=== PATIENT | female | born 1985 | race Caucasian/White ===

== ENCOUNTER 2016-10-25 03:15 | Emergency (ER) | payer OTHER ==
[~2016-10-25] VITALS: Ht 162.6 cm; Wt 133.6 kg
[~2016-10-25 03:15] MED LIST: ALBU8.5H2 INHALATION; ASPI81TA3 PO; BECL8.7A5 IH; BUDE10.2; EPIN0.3P2 IJ; GUAI118L13 PO; LORA-302 PO; implanon IMPLANT
--- NOTE | 2016-10-25 03:22 | ED.REPORT ---
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 Reports progressively worsening pain. Pt also reports a syncopal episode today. She was in the shower , became dizzy, and woke up on the floor. Denies nausea, vomiting, confusion, headache, neck pain, back pain, abdominal pain, constipation, diarrhea, or dysuria. Nursing Notes Stated Complaint: SYNCOPE Nursing Notes Reviewed: Yes Allergies: Coded Allergies: avocado (Verified Allergy, Unknown, 06/25/16) citalopram (Verified Allergy, Unknown, 06/25/16) hydroxyzine (Verified Allergy, Unknown, oversedation, 06/25/16) phenazopyridine (Verified Allergy, Unknown, 06/25/16) Uncoded Allergies: POLYMYXIN SULFATE (Allergy, Unknown, 09/28/15) Scheduled Aspirin Chew (Aspirin Chew) 81 Mg Chew 81 MG PO DAILY Beclomethasone Dipropionate (Qvar) 8.7 Gm Aer.w.adap 8.7 GM IH BID Scheduled PRN Albuterol HFA (Proair HFA) 8.5 Gm Hfa.aer.ad 2 PUFFS INHALATION Q4H PRN PRN For Shortness of Breath Albuterol HFA (Proair HFA) 8.5 Gm Hfa.aer.ad 2-4 PUFFS INHALATION Q4H PRN PRN For Shortness of Breath Budesonide/Formoterol 80-4.5 mcg Inh (Symbicort 80-4.5 mcg Inh) 120 Puff Inhaler 2 PUFFS PRN For Shortness of Breath Epinephrine (Epipen 2-Prem) 0.3 Mg/0.3 Ml Auto.injct 0.3 MG IJ ONCE PRN PRN For Anaphyllaxis Guaifenesin/Codeine Phosphate (Cheratussin AC Syrup) 118 Ml Liquid 10 ML PO QID PRN PRN For Cough Lorazepam (Ativan) 0.5 Mg Tablet 0.5 MG PO TID PRN PRN For Anxiety Miscellaneous Medications ([implanon]) 68 MG IMPLANT General Time Seen by Provider: 03:21 Chief Complaint Lost consciousness Hx Obtained From: Patient Arrived By: Ambulance Onset Occurred: Just prior to arrival Symptom Duration: Since onset Severity: Current: No pain currently Pertinent Negative: Pt denies other symptoms Recent Healthcare: No recent doctor visit, No recent hospitalization Similar Sx Previous: Yes Past Medical History Past Medical History Notes: Seen in ED 05/09 dx w/Varicella (started on Acyclovir) PCP: Dr. 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 Physical Exam Initial Vital Signs Vital Signs (First) Date Time Temp Pulse Resp B/P Pulse Ox O2 Delivery O2 Flow Rate FiO2 10/25/16 03:25 38.5 123 23 96/63 97 Room Air - Initial VS: Reviewed, Vital signs abnormal Head / Eyes: Atraumatic, Normocephalic, PERRL ENT: Mucous membranes moist, Conjunctiva normal, No scleral icterus Neck: Supple, Non-tender, Full range of motion Upper Extremities: Vascular intact, Neuro intact, No swelling, No tenderness Skin: Warm, Dry, No cyanosis Psychiatric: Mood/affect normal, Behavior normal, Normal thought content General/Constitutional: Awake, Alert Appearance / Presentation: Positive: Obese Respiratory / Chest: Breath sounds NL, Breath sounds = bilat, No respiratory distress, No rales, No rhonchi, No wheezing Cardiovascular: Heart rate NL, Regular rhythm, Heart sounds NL, No murmurs, Cap refill not delayed, Peripheral circulation NL Lower Extremity / Pelvis / MS: Inspection NL, No swelling, Non-tender, No erythema, No deformity, Neurologic intact, Vascular intact, No edema Neurologic: Oriented X3, Speech NL, No motor deficits, No sensory deficits, CN II - XII intact, Reflexes equal bilat, Cerebellar NL Interpretation & Diagnostics CT PULMONARY ANGIOGRAM CONCLUSION: No evidence of pulmonary embolism or dissection. RADIOLOGIST: Reed Daniels MD Lab Results Interpretation Result Diagram: 10/25/16 0333 10/25/16 0333 Test 10/25/16 03:33 White Blood Count 9.1th/mm3 (3.8-10.1) Red Blood Count 5.25mil/mm3 (3.90-5.20) Hemoglobin 14.5g/dL (12.0-15.6) Hematocrit 44.9% (35.0-46.0) Mean Corpuscular Volume 85.5fL (81-100) Mean Corpuscular Hemoglobin 27.6pg (27.0-35.0) Mean Corpuscular Hemoglobin Concent 32.3% (32.0-37.0) Red Cell Distribution Width 13.9% (12.3-15.4) Platelet Count 244bil/L (150-400) Neutrophils (%) (Auto) 78.3% (40-74) Lymphocytes (%) (Auto) 13.1% (14-46) Monocytes (%) (Auto) 8.3% (4-12) Eosinophils (%) (Auto) 0.1% (0-5) Basophils (%) (Auto) 0.1% (0-3) D-Dimer 1.3mg/L (<0.50) Sodium Level 140mEq/L (134-144) Potassium Level 3.9mEq/L (3.5-5.2) Chloride Level 103mEq/L (97-108) Carbon Dioxide Level 23mmol/L (18-29) Blood Urea Nitrogen 8mg/dL (6-20) Creatinine 1.02mg/dL (0.57-1.00) Estimat Glomerular Filtration Rate 91mL/min (>59) Glucose Level 141mg/dL (60-99) Calcium Level 9.1mg/dL (8.5-10.1) Magnesium Level 1.8mg/dL (1.6-2.6) Total Bilirubin 0.4mg/dL (0.0-1.2) Aspartate Amino Transf (AST/SGOT) 26U/L (0-50) Alanine Aminotransferase (ALT/SGPT) 30U/L (0-32) Alkaline Phosphatase 85U/L (25-150) Troponin T 0.010ug/L (0.0-0.011) Pro-B-Type Natriuretic Peptide 97.29pg/mL (0-130) Total Protein 7.4g/dL (6.4-8.4) Albumin 3.6g/dL (3.4-5.0) ECG Interpretation ECG Interpretation: Sinus tachycardia at a rate of 111 Time: 04:13 Interpreted by: ED physician X-Ray Chest Interpretation Interpretation / Wet Read by: Wet read ED physician NL X-Ray Chest Findings: No acute disease Re-Eval/Medical Decision Med Decision/Clinical Course It appears her symptoms are due to a viral bronchitis. No evidence on labs or CT of serious pulmonary problems. No evidence of pulmonary edema. Antibiotics would not be helpful. [id number] cough and cold medication would help relieve her symptoms. Counseled Regarding: Diagnosis, Lab results, Need for follow-up Discharge & Departure Impression: Primary Impression: Acute viral bronchitis Disposition: Home Discharge Condition All VS Reviewed: Yes Condition: Stable Patient Instructions: Acute Bronchitis (ED) Additional Instructions: It appears her symptoms are due to a viral bronchitis. No evidence on labs or CT of serious pulmonary problems. No evidence of pulmonary edema. Antibiotics would not be helpful. [id number]-[id number] cough and cold medication would help relieve her symptoms. Referrals: Tremayne Nicholas (PCP) Scribe Attestation Portions of this note were transcribed by Lazarus Meadows. I, Dr. Byrne personally performed the history, physical exam and medical decision-making; I reviewed and confirmed the accuracy of the information in the transcribed note. Signed by: damien Hernandez. 10/24/2016, 05:00. Jone Byrne MD Oct 25, 2016 03:22 LAZARUS MEADOWS Oct 25, 2016 03:38
[2016-10-25 03:25] VITALS: BP 96/63; PULSE 123; RESP 23; O2SAT 97
[2016-10-25] MEDS ORDERED: 0.9% Sodium Chloride 1,000 ML IV ONE (03:31)
[2016-10-25 03:44] LABS: BASOPHILS % (AUTO) 0.1 % (0-3); EOSINOPHILS % (AUTO) 0.1 % (0-5); MONOCYTES % (AUTO) 8.3 % (4-12); Mean Corpuscular Hemoglobin 27.6 pg (27.0-35.0); Mean Corpuscular Volume 85.5 fL (81-100); NEUTROPHILS % (AUTO) 78.3 % (40-74); Platelet Count 244 bil/L (150-400)
[2016-10-25 04:06] LABS: TROPONIN T 0.01 ug/L (0.0-0.011)
[2016-10-25 04:17] LABS: Magnesium 1.8 mg/dL (1.6-2.6)
[2016-10-25 05:54] VITALS: BP 119/75; PULSE 92; RESP 15; O2SAT 98
[2016-10-25 06:56] VITALS: BP 118/78; PULSE 88; RESP 16; O2SAT 98
--- NOTE | 2016-10-25 08:55 | DRSVH ---
PROCEDURE: X-RAY CHEST ONE VIEW, PORTABLE ([id number]) INDICATIONS: SHORT OF BREATH TECHNIQUE: One view of the chest was acquired. COMPARISON: [facility], CR, XR CHEST 1VW (PORTABLE), 09/11/2016, 17:15. FINDINGS: Surgical changes and devices: None. Lungs and pleura: No pleural effusions or pneumothorax. Lungs are clear. Mediastinum: Mediastinal contours appear normal. Heart size is normal. Bones and chest wall: No suspicious bony lesions. Overlying soft tissues appear unremarkable. IMPRESSION: No acute cardiopulmonary disease. Dictated by: Alejo Dugan M.D. on 10/25/2016 at 8:53 Approved by: Alejo Dugan M.D. on 10/25/2016 at 8:54
--- NOTE | 2016-10-25 11:08 | DRSVH ---
PROCEDURE: CT ANGIO CHEST PULMONARY EMBOLISM ([id number]) INDICATIONS: chest pain, dyspnea, elev dimer TECHNIQUE: After the administration of intravenous contrast, 2 mm thick sections acquired from the pulmonary api aretha to the posterior costophrenic angles. 3-dimensional maximum intensity projection (MIP) coronal a nd sagittal reformats were then acquired through the thorax. For radiation dose reduction, the follo wing was used: automated exposure control, adjustment of mA and/or kV according to patient size. COMPARISON: , CT, CT ANGIO CHEST PE, 09/11/2016, 19:01. FINDINGS: Image quality: Excellent. Pulmonary arteries: Pulmonary arteries are normal in size, and demonstrate no intraluminal filling d efects to suggest central pulmonary embolism. Lungs and pleura: Lungs are clear. No pleural effusions or pneumothorax. Central and peripheral ai rways are patent. Mediastinum: Heart size is normal, without pericardial effusion. No change in anterior mediastinal s oft tissue density, consistent with residual thymus. No mediastinal or hilar adenopathy. Thoracic ao rta is normal in caliber and enhancement. Esophagus is normal in caliber, without hiatal hernia. Bones and chest wall: No suspicious bony lesions. Ribs and thoracic spine appear intact throughout. Thyroid gland is within normal limits. No axillary or supraclavicular adenopathy. Abdomen: Visualized upper abdominal solid organs appear normal in the early arterial phase of enhanc ement. IMPRESSION: 1. No acute process. No pulmonary embolus. 2. Concordant with preliminary interpretation. Dictated by: Anayeli Holliday M.D. on 10/25/2016 at 11:04 Approved by: Anayeli Holliday M.D. on 10/25/2016 at 11:07
== END 2016-10-25 06:57 | disposition home or self-care (01) ==
LOC: EDBD 03:15 → SED 03:15
DX: J20.8 Acute bronchitis due to other specified organisms (principal); R55 Syncope and collapse; F41.9 Anxiety disorder, unspecified; J45.909 Unspecified asthma, uncomplicated; E66.9 Obesity, unspecified; Z91.018 Allergy to other foods; Z87.09 Personal history of other diseases of the respiratory system; Z87.442 Personal history of urinary calculi; Z68.43 Body mass index [BMI] 50.0-59.9, adult; Z98.890 Other specified postprocedural states; Z79.82 Long term (current) use of aspirin; Z88.8 Allergy status to other drugs, medicaments and biological substances; Z88.6 Allergy status to analgesic agent; Z88.1 Allergy status to other antibiotic agents
CPT/HCPCS: 36415; 71010; 71275; 80053; 83735; 83880; 84484; 85025; 85379; 93005; 96360; 99285; J7030; Q9967

== ENCOUNTER 2016-11-27 17:57 | Emergency (ER) | payer OTHER ==
[~2016-11-27] VITALS: Ht 162.6 cm; Wt 56.8 kg
[2016-11-27 18:05] VITALS: BP 129/79; PULSE 78; RESP 16; O2SAT 99
[2016-11-27 18:53] LABS: Mean Corpuscular Hemoglobin 28.1 pg (27.0-35.0); Mean Corpuscular Volume 84 fL (81-100); Platelet Count 324 bil/L (150-400)
[2016-11-27 18:54] LABS: BASOPHILS % (AUTO) 0 % (0-3); EOSINOPHILS % (AUTO) 2 % (0-5); MONOCYTES % (AUTO) 5 % (4-12); NEUTROPHILS % (AUTO) 69 % (40-74)
[2016-11-27 19:14] LABS: TROPONIN T < 0.010 ug/L (0.0-0.011)
--- NOTE | 2016-11-27 19:38 | ED.REPORT ---
HPI-Chest Pain Under 40 Date of Service Nov 27, 2016 ED Provider: Darien Cai MD 31 year old obese female with a history of cardiomyopathy and anxiety presents to the ER with acute on chronic persistent chest pressure onset this morning at 08:30. Symptoms are typically transient, but today they have persisted throughout the day. Occasionally the pain radiates into her back, without arm or neck involvement. She also reports headache. Patient denies SOB, nausea, vomiting, and any other symptoms at this time. Several weeks ago she was seen here in the ER for similar and worked up for PE. She is currently scheduled for a Holter monitor per her recent visit with Dr. Wells, Cardiology, five days ago. Nursing Notes Stated Complaint: CHEST PAIN Chief Complaint: Chest Pain Nursing Notes Reviewed: Yes Allergies: Coded Allergies: avocado (Verified Allergy, Unknown, 11/27/16) citalopram (Verified Allergy, Unknown, 11/27/16) hydroxyzine (Verified Allergy, Unknown, oversedation, 11/27/16) phenazopyridine (Verified Allergy, Unknown, 11/27/16) Uncoded Allergies: POLYMYXIN SULFATE (Allergy, Unknown, 09/28/15) Scheduled Aspirin Chew (Aspirin Chew) 81 Mg Chew 81 MG PO DAILY Beclomethasone Dipropionate (Qvar) 8.7 Gm Aer.w.adap 8.7 GM IH BID Scheduled PRN Albuterol HFA (Proair HFA) 8.5 Gm Hfa.aer.ad 2 PUFFS INHALATION Q4H PRN PRN For Shortness of Breath Albuterol HFA (Proair HFA) 8.5 Gm Hfa.aer.ad 2-4 PUFFS INHALATION Q4H PRN PRN For Shortness of Breath Budesonide/Formoterol 80-4.5 mcg Inh (Symbicort 80-4.5 mcg Inh) 120 Puff Inhaler 2 PUFFS PRN For Shortness of Breath Epinephrine (Epipen 2-Prem) 0.3 Mg/0.3 Ml Auto.injct 0.3 MG IJ ONCE PRN PRN For Anaphyllaxis Guaifenesin/Codeine Phosphate (Cheratussin AC Syrup) 118 Ml Liquid 10 ML PO QID PRN PRN For Cough Lorazepam (Ativan) 0.5 Mg Tablet 0.5 MG PO TID PRN PRN For Anxiety Miscellaneous Medications ([implanon]) 68 MG IMPLANT General Time Seen by MD: 19:31 Chief Complaint Chest pressure Hx Obtained From: Patient Arrived By: Walk-in Sudden in Onset?: No Onset Occurred: 9 - 12 hours ago (08:30 today) Symptom Duration: Since onset Location: : Substernal Quality: Pressure Radiation: : Back Severity: Current: Moderate Severity: Maximum: Moderate Associated with: Denies: Cough, productive, Fever, Nausea, Shortness of breath , Vomiting Context Related History: Reports: Anxiety disorder Recent Healthcare: Recent doctor visit Similar Sx Previous: Yes Past Medical History Past Medical History Notes: Seen in ED 05/09 dx w/Varicella (started on Acyclovir) PCP: Dr. 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 Physical Exam Initial Vital Signs Vital Signs (First) Date Time Temp Pulse Resp B/P Pulse Ox O2 Delivery O2 Flow Rate FiO2 11/27/16 18:05 36.2 78 16 129/79 99 Room Air Initial VS: Reviewed Head / Eyes: Atraumatic, Normocephalic Neck: Supple, Non-tender, Full range of motion Abdomen / GI: Soft, Non-tender, No guarding, No rebound, No distention Extremities: Vascular intact, Neuro intact, No swelling, No tenderness Skin: Warm, Dry, No cyanosis Neurologic: Alert, Oriented, Nonfocal General/Constitutional: Awake, Alert, Well developed Behavior: Positive: Tearful Appearance / Presentation: Positive: Obese Respiratory / Chest: Breath sounds NL, Breath sounds = bilat, No respiratory distress, No rales, No rhonchi Wheezing / Retractions: Positive: Wheezing mild (bilateral) Reproducible chest pain. Cardiovascular: Heart rate NL, Regular rhythm, Heart sounds NL, No murmurs Interpretation & Diagnostics Lab Results Interpretation Result Diagram: 11/27/16 1809 11/27/16 1843 Test 11/27/16 18:09 11/27/16 18:43 White Blood Count 10.7th/mm3 (3.8-10.1) Red Blood Count 4.95mil/mm3 (3.90-5.20) Hemoglobin 13.9g/dL (12.0-15.6) Hematocrit 41.4% (35.0-46.0) Mean Corpuscular Volume 84fL (81-100) Mean Corpuscular Hemoglobin 28.1pg (27.0-35.0) Mean Corpuscular Hemoglobin Concent 33.6% (32.0-37.0) Red Cell Distribution Width 13.6% (12.3-15.4) Platelet Count 324bil/L (150-400) Neutrophils (%) (Auto) 69% (40-74) Lymphocytes (%) (Auto) 24% (14-46) Monocytes (%) (Auto) 5% (4-12) Eosinophils (%) (Auto) 2% (0-5) Basophils (%) (Auto) 0% (0-3) Sodium Level 139mEq/L (134-144) Potassium Level 4.0mEq/L (3.5-5.2) Chloride Level 103mEq/L (97-108) Carbon Dioxide Level 22mmol/L (18-29) Blood Urea Nitrogen 13mg/dL (6-20) Creatinine 0.77mg/dL (0.57-1.00) Estimat Glomerular Filtration Rate 126mL/min (>59) Glucose Level 95mg/dL (60-99) Calcium Level 9.0mg/dL (8.5-10.1) Magnesium Level 2.0mg/dL (1.6-2.6) Total Bilirubin 0.3mg/dL (0.0-1.2) Aspartate Amino Transf (AST/SGOT) 23U/L (0-50) Alanine Aminotransferase (ALT/SGPT) 28U/L (0-32) Alkaline Phosphatase 86U/L (25-150) Troponin T < 0.010ug/L (0.0-0.011) Total Protein 7.2g/dL (6.4-8.4) Albumin 3.9g/dL (3.4-5.0) Hold Philippe Top Tube Received (Received) ECG Interpretation Time: 20:07 Interpreted by: ED physician Normal ECG Interpretation: Normal rate (73), Normal sinus rhythm X-Ray Chest Interpretation Chest Xray Interpretation: IMPRESSION: No acute disease Dictated by: Yousif Raya M.D. on 11/27/2016 at 21:30 Approved by: Yousif Raya M.D. on 11/27/2016 at 21:30 View: Portable, 1 view Interpretation / Wet Read by: Interpret - Radiologist Re-Eval/Medical Decision Med Decision/Clinical Course 31-year-old female history of cardiomyopathy secondary to NSTEMI in August due to accidental epinephrine overdose after anaphylactic reaction. Presenting complaining of chest pain daily 1 month. Worsening today. It is reproducible on exam. Patient was sent over from urgent care and user support analyst supervisor requested troponins. Troponins were negative. No EKG changes. Resolved with Toradol likely musculoskeletal. Discussed with user support analyst supervisor who thought okay to discharge home with follow up with his user support analyst supervisor and recommended scheduling urgent stress test. Return precautions given. Source of Hx: Old records Re-Evaluation/Progress : Time of Eval: 21:38 Re-Evaluation/Progress Note: Discussed lab and radiology results and plan to discharge. Patient is amenable to the plan. Return precautions given. All other questions addressed. Consultation : Referral / Consult Name: Marciano Lux MD Consulted With: Cardiology Call Returned at: 20:14 Fluorescent Lamp Replacer: Agrees with eval, Agrees with plan Note: Discharge, call to arrange stress test in the morning. Counseled Regarding: Diagnosis, Lab results, Need for follow-up, When/why to return to ED Discharge & Departure Primary Impression: Chest pain Disposition: Home Discharge Condition All VS Reviewed: Yes Condition: Stable Patient Instructions: Chest Pain (ED) Additional Instructions: Your workup today was reassuring. I do not believe that there is any dangerous cause for your symptoms at this time. Call Dr. Wells, Cardiology, in the morning to arrange a stress test. Mention that Dr. Lux requested this. Return to the ER if you develop worsening pain, radiation of pain into your arms /neck/jaw, shortness of breath, diaphoresis, nausea, fever, chills, or any other concerning symptoms. Referrals: Lakshmi Layton (PCP) Sienna Wells MD Attestation Portions of this note were transcribed by Dusty Sherman. I, Dr. Cai, personally performed the history, physical exam and medical decision-making; I reviewed and confirmed the accuracy of the information in the transcribed note. Signed by: Jarrett Osorio, 11/27/2016 - 21:45 copies to: Lakshmi Layton; Sienna Wells MD, Ben M MD Nov 27, 2016 19:38 DUSTY SHERMAN Nov 27, 2016 19:52
[2016-11-27] MEDS ORDERED: Ketorolac 30 mg/mL 2 mL Inj IM ONE (20:20)
--- NOTE | 2016-11-27 21:32 | DRSVH ---
PROCEDURE: X-RAY CHEST ONE VIEW, PORTABLE ([id number]) INDICATIONS: pain TECHNIQUE: One view of the chest was acquired. COMPARISON: None. FINDINGS: Surgical changes and devices: None. Lungs and pleura: No pleural effusions or pneumothorax. Lungs are clear. Mediastinum: Mediastinal contours appear normal. Heart size is normal. Bones and chest wall: No suspicious bony lesions. Overlying soft tissues appear unremarkable. IMPRESSION: No acute disease Dictated by: Yousif Raya M.D. on 11/27/2016 at 21:30 Approved by: Yousif Raya M.D. on 11/27/2016 at 21:30
[2016-11-27 21:55] VITALS: BP 99/63; PULSE 76; RESP 16; O2SAT 99
== END 2016-11-27 21:54 | disposition home or self-care (01) ==
LOC: SED 17:57
DX: R07.89 Other chest pain (principal); R51 Headache; I42.9 Cardiomyopathy, unspecified; J45.909 Unspecified asthma, uncomplicated; Z79.82 Long term (current) use of aspirin; Z88.8 Allergy status to other drugs, medicaments and biological substances; Z91.018 Allergy to other foods
CPT/HCPCS: 36415; 71010; 80053; 83735; 84484; 85025; 93005; 96372; 99285; G0463; J1885

== ENCOUNTER 2017-01-13 23:58 | Observation (INO) | payer OTHER ==
[~2017-01-13] VITALS: Ht 160 cm; Wt 132.9 kg
[2017-01-14] VITALS (11 sets, daily range): BP systolic 97–113; BP diastolic 43–66; PULSE 77–108; RESP 17–28; O2SAT 97–99
[2017-01-14] MEDS ORDERED: 0.9% Sodium Chloride 1,000 ML IV ONE (00:21)
[2017-01-14] MEDS ORDERED: MeTOProlol 1 mg/mL 5 mL Inj IVPUSH PRN (00:25)
[2017-01-14] MEDS ORDERED: Ondansetron 2 mg/mL 2 mL Inj ONE (00:50)
[2017-01-14 00:55] LABS: BASOPHILS % (AUTO) 0.1 % (0-3); MONOCYTES % (AUTO) 6.7 % (4-12); Mean Corpuscular Hemoglobin 28.4 pg (27.0-35.0); Mean Corpuscular Volume 79.9 fL (81-100); NEUTROPHILS % (AUTO) 64.2 % (40-74); Platelet Count 359 bil/L (150-400)
[2017-01-14 01:22] LABS: D-Dimer < 0.50 mg/L FEU (<0.50)
[2017-01-14] MEDS ORDERED: Alum-Mag Hydrox-Simeth 30 mL Suspension PO ONE (01:35)
[2017-01-14] MEDS ORDERED: Pantoprazole 4 mg/mL 10 mL Inj IVPUSH ONE (01:35)
[2017-01-14 01:41] LABS: TROPONIN T 0.01 ug/L (0.0-0.011)
--- NOTE | 2017-01-14 03:08 | ED.REPORT ---
HPI-Chest Pain Under 40 Date of Service Jan 14, 2017 ED Provider: Eric Contreras MD Patient is a 31 year old female with a history of CAD, CHF, depression, anxiety , and previous cardiac reaction to epinephrine who presents to the ED complaining of chest pain onset 0900 this morning. Patient states that she took her new nitrate heart medication that was prescribed two days ago by Dr. Wells, professional advisor, at 0830 this morning with toast and felt fine until 1100. She then began feeling nauseated, diaphoretic, palpitations and feeling as though she was "floating". She also complains of feeling a pounding in her head when she leaned down. Rest did not help to resolve her symptoms. The symptoms worsened throughout the day until she called EMS in the evening. Nursing Notes Stated Complaint: CHEST DISCOMFORT AND ANXIETY Chief Complaint: Chest Pain Nursing Notes Reviewed: Yes Allergies: Coded Allergies: avocado (Verified Allergy, Unknown, 11/27/16) citalopram (Verified Allergy, Unknown, 11/27/16) hydroxyzine (Verified Allergy, Unknown, oversedation, 11/27/16) phenazopyridine (Verified Allergy, Unknown, 11/27/16) Uncoded Allergies: POLYMYXIN SULFATE (Allergy, Unknown, 09/28/15) Scheduled Aspirin Chew (Aspirin Chew) 81 Mg Chew 81 MG PO DAILY Beclomethasone Dipropionate (Qvar) 8.7 Gm Aer.w.adap 8.7 GM IH BID Scheduled PRN Albuterol HFA (Proair HFA) 8.5 Gm Hfa.aer.ad 2 PUFFS INHALATION Q4H PRN PRN For Shortness of Breath Albuterol HFA (Proair HFA) 8.5 Gm Hfa.aer.ad 2-4 PUFFS INHALATION Q4H PRN PRN For Shortness of Breath Budesonide/Formoterol 80-4.5 mcg Inh (Symbicort 80-4.5 mcg Inh) 120 Puff Inhaler 2 PUFFS PRN For Shortness of Breath Epinephrine (Epipen 2-Prem) 0.3 Mg/0.3 Ml Auto.injct 0.3 MG IJ ONCE PRN PRN For Anaphyllaxis Guaifenesin/Codeine Phosphate (Cheratussin AC Syrup) 118 Ml Liquid 10 ML PO QID PRN PRN For Cough Lorazepam (Ativan) 0.5 Mg Tablet 0.5 MG PO TID PRN PRN For Anxiety Miscellaneous Medications ([implanon]) 68 MG IMPLANT General Time Seen by MD: 00:20 Chief Complaint Chest pain Hx Obtained From: Patient, EMS Arrived By: Ambulance Sudden in Onset?: Yes Onset Occurred: 13 - 16 hours ago Recent Healthcare: No recent hospitalization, Recent doctor visit Similar Sx Previous: Yes Past Medical History Past Medical History Notes: Seen in ED 05/09 dx w/Varicella (started on Acyclovir) PCP: Dr. 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 Physical Exam Initial Vital Signs Vital Signs (First) Date Time Temp Pulse Resp B/P Pulse Ox O2 Delivery O2 Flow Rate FiO2 01/14/17 00:07 36.7 108 28 113/43 98 Room Air Initial VS: Reviewed General/Constitutional: Awake, Alert Appearance / Presentation: Positive: Obese Respiratory / Chest: Atraumatic, Breath sounds NL, Breath sounds = bilat, No respiratory distress Cardiovascular: Heart rate NL, Regular rhythm, Heart sounds NL Neck: Atraumatic, Supple, Full range of motion Abdomen: Atraumatic, Soft, Non-tender Back: Atraumatic, Full range of motion Lower Extremity / Pelvis / MS: Atraumatic, Full range of motion Skin: Atraumatic, Color NL, No rash, Warm, Dry Neurologic: Oriented X3, Speech NL, No motor deficits, No sensory deficits Psychiatric: Affect NL, Mood NL Head / Eyes: Atraumatic, Normocephalic, PERRL, EOMI ENT: Atraumatic, Airway patent, Mucous membranes moist Upper Extremity / MS: Atraumatic, Full range of motion Interpretation & Diagnostics Lab Results Interpretation Result Diagram: 01/14/17 0030 01/14/17 0030 Test 01/14/17 00:30 01/14/17 01:26 White Blood Count 11.1th/mm3 (3.8-10.1) Red Blood Count 4.97mil/mm3 (3.90-5.20) Hemoglobin 14.1g/dL (12.0-15.6) Hematocrit 39.7% (35.0-46.0) Mean Corpuscular Volume 79.9fL (81-100) Mean Corpuscular Hemoglobin 28.4pg (27.0-35.0) Mean Corpuscular Hemoglobin Concent 35.5% (32.0-37.0) Red Cell Distribution Width 13.3% (12.3-15.4) Platelet Count 359bil/L (150-400) Neutrophils (%) (Auto) 64.2% (40-74) Lymphocytes (%) (Auto) 27.8% (14-46) Monocytes (%) (Auto) 6.7% (4-12) Eosinophils (%) (Auto) 1.0% (0-5) Basophils (%) (Auto) 0.1% (0-3) Prothrombin Time 10.7sec (8.1-12.5) Prothromb Time International Ratio 1.00ratio Activated Partial Thromboplast Time 28.2sec (22.8-33.0) D-Dimer < 0.50mg/L FEU (<0.50) Sodium Level 137mEq/L (134-144) Potassium Level 3.8mEq/L (3.5-5.2) Chloride Level 101mEq/L (97-108) Carbon Dioxide Level 18mmol/L (18-29) Blood Urea Nitrogen 10mg/dL (6-20) Creatinine 0.70mg/dL (0.57-1.00) Estimat Glomerular Filtration Rate 141mL/min (>59) Glucose Level 120mg/dL (60-99) Calcium Level 9.1mg/dL (8.5-10.1) Magnesium Level 2.0mg/dL (1.6-2.6) Total Bilirubin 0.2mg/dL (0.0-1.2) Aspartate Amino Transf (AST/SGOT) 25U/L (0-50) Alanine Aminotransferase (ALT/SGPT) 31U/L (0-32) Alkaline Phosphatase 86U/L (25-150) Total Protein 7.3g/dL (6.4-8.4) Albumin 3.9g/dL (3.4-5.0) Hold Philippe Top Tube Received (Received) Hold Urine Received (Received) ECG Interpretation ECG Interpretation: Atrial premature complex Time: 00:11 Interpreted by: ED physician Normal ECG Interpretation: Normal rate (95), Normal sinus rhythm Time: 03:05 Interpreted by: ED physician Normal ECG Interpretation: Normal rate (88), Normal sinus rhythm X-Ray Chest Interpretation Chest Xray Interpretation: poor inspiration no acute findings View: Portable, 1 view Interpretation / Wet Read by: Wet read ED physician Re-Eval/Medical Decision Med Decision/Clinical Course 31-year-old prior episode of non-STEMI strain ischemia associated with use of IV epinephrine and an allergy response. She presents now with chest pain lightheadedness and throbbing headache in the setting of new nitroglycerin prescription, possibly isosorbide mononitrate. She has been only moderately consolable and remains in some pain, but her EKG is negative 2, as are two sets of enzymes two hours apart. She was admitted now observation status for completion of rule out protocol and possible echocardiogram. Transported in stable condition. Source of Hx: Old records Re-Evaluation/Progress : Time of Eval: 05:04 Patient Status: Condition improved Re-Evaluation/Progress Note: Rechecked patient. Discussed EKG results and plan for admission. The patient understands and agrees to the plan. All questions were addressed. Consultation : Referral / Consult Name: Joey Machado MD Consulted With: Hospitalist Call Returned at: 05:17 Public Policy Mediator: Agrees with eval, Agrees with plan, Accepts admit Counseled Regarding: Diagnosis, Lab results, Need for admission Discharge & Departure Primary Impression: Chest pain Chest pain type: unspecified Qualified Code: R07.9 - Chest pain, unspecified Additional Impression: Anxiety Disposition: ADMITTED TO HOSPITAL Discharge Condition All VS Reviewed: Yes Condition: Stable Referrals: Lakshmi Layton (PCP) Scribe Attestation Portions of this note were transcribed by Ashley Byrne. Dr. Ben Sierra personally performed the history, physical exam and medical decision -making; I reviewed and confirmed the accuracy of the information in the transcribed note. Signed by: Jarrett Moore, 01/14/17 and 0612. copies to: Lakshmi Layton Christopher W MD Jan 14, 2017 03:08 Payton Stafford Jan 14, 2017 03:09 JOE BYRNE Jan 14, 2017 04:15 Discharge & Departure Primary Impression: Chest pain Chest pain type: unspecified Qualified Code: R07.9 - Chest pain, unspecified Additional Impression: Anxiety Disposition: ADMITTED TO HOSPITAL Discharge Condition All VS Reviewed: Yes Condition: Stable Referrals: Lakshmi Layton (PCP) Jarrett Attestation Portions of this note were transcribed by Ashley Byrne. I, Dr. Contreras personally performed the history, physical exam and medical decision -making; I reviewed and confirmed the accuracy of the information in the transcribed note. Signed by: Jarrett Moore, 01/14/17 and 0559. copies to: Lakshmi Layton Christopher W MD Jan 14, 2017 03:08 Payton Stafford Jan 14, 2017 03:09 JOE BYRNE Jan 14, 2017 04:15
[2017-01-14] MEDS ORDERED: 0.9% Sodium Chloride 1,000 ML IV SCH ×2 (05:24→12:44)
[2017-01-14] MEDS ORDERED: Atropine 1 mg/10 mL (Code) Syringe IVPUSH PRN (05:25)
[2017-01-14] MEDS ORDERED: Senna-Docusate 8.6-50 mg Tablet PO PRN (05:25)
[2017-01-14] MEDS ORDERED: Alum-Mag Hydrox-Simeth 30 mL Suspension PO PRN ×2 (05:25→12:45)
[2017-01-14] MEDS ORDERED: Ondansetron 2 mg/mL 2 mL Inj IVPUSH PRN ×2 (05:25→12:45)
[2017-01-14] MEDS ORDERED: Polyethylene Glycol (PEG) 17 Gm Powder PO PRN ×2 (05:25→12:45)
--- NOTE | 2017-01-14 06:30 | NUR ---
Admit Pt arrived on unit #[id number] at apprx 0625 from ED via stretcher with all personal belongings. VSS. Oriented to hospital policy and call light. Bed locked, low position. Allergy sticker placed on armband. Call light within reach.
[2017-01-14 07:11] LABS: Creatine Kinase 69 U/L (21-215)
[2017-01-14] MEDS ORDERED: ACET10DR4 BOTH_EARS (07:43)
[2017-01-14] MEDS ORDERED: ISOS30TA4 PO (07:43)
[2017-01-14] MEDS ORDERED: METR45GE11 TOPICAL (07:43)
[2017-01-14] MEDS ORDERED: Sodium Chloride LOK Flush 10 mL Syringe IVFLUSH SCH (08:30)
[2017-01-14] MEDS ORDERED: Heparin 5,000 Unit/mL Inj SUBQ SCH ×2 (08:30→16:30)
--- NOTE | 2017-01-14 10:06 | NUR ---
Pt concern/medication Pt sts "feels really off, like I'm floating" Pt believes is related to medication that was started 01/13. Reports upper chest is sensitive to touch, sts "morphine does not work well for pain". Has used Toradol in past with better pain control. MD made aware. No new orders given at this time. Will continue to monitor.
--- NOTE | 2017-01-14 10:42 | DRSVH ---
PROCEDURE: X-RAY CHEST ONE VIEW, PORTABLE ([id number]) INDICATIONS: Chest pain. TECHNIQUE: One view of the chest was acquired. COMPARISON: [facility], CR, XR CHEST 1VW (PORTABLE), 11/27/2016, 20:22. FINDINGS: Surgical changes and devices: None. Lungs and pleura: Shallow inspiration. No pleural effusions or pneumothorax. Lungs are clear. Mediastinum: Mediastinal contours appear normal. Heart size is normal. Bones and chest wall: No suspicious bony lesions. Overlying soft tissues appear unremarkable. IMPRESSION: No acute cardiopulmonary disease. Dictated by: Alejo Dugan M.D. on 01/14/2017 at 10:40 Approved by: Alejo Dugan M.D. on 01/14/2017 at 10:40
[2017-01-14 12:44] LABS: Creatine Kinase 68 U/L (21-215)
[2017-01-14] MEDS ORDERED: Hydrocortisone 10 mg Tablet PO ONE (12:45)
[2017-01-14] MEDS ORDERED: Ketorolac 15 mg/mL Inj IVPUSH PRN (12:45)
--- NOTE | 2017-01-14 15:42 | NUR ---
Ambulation Pt up and ambulating in room. Able to lift self from bed with no assistance from this RN. Gait is steady and strong, no complains of increased chest pain, SOB or dizziness. made aware.
[2017-01-14] MEDS ORDERED: IBUP400T22 PO (15:43)
--- NOTE | 2017-01-14 15:51 | PCM.DIMED ---
Discharge Instructions Date of Service Jan 14, 2017 Dates of Hospitalization Jan 14, 2017 at 05:38 Discharge Diagnosis Discharge Diagnosis 1. Acute chest pain most likely acute Costochondritis. Present on admission. Ongoing. - ruled out for myocardial infarction with negative serial cardiac enzymes. 2. Acute nausea, diaphoresis and palpitations, present prior to presentation. Likely side effect of new medication, Isosorbide. Resolved. Diet Heart Healthy Activity No restrictions Call your provider Fever or Chills, Shortness of breath, Chest pain, Vomitting Patient Instructions Seek immediate medical attention if any new or worsening signs or symptoms occur. Follow-up plan 1. Followup with primary care provider this coming week 2. Followup with your seasonal warehouse associate (Dr. Wells) as previously planned or sooner if needed. Follow-up Provider: Lakshmi Layton Provider: Sienna Wells MD, Masoud Jan 14, 2017 15:51
--- NOTE | 2017-01-14 16:21 | NUR ---
Discharge Pt discharged at this time, all belongings gathered and returned to pt. VSS, no complains of increased chest pain, SOB, N/V or dizziness. IV D/Cd intact, tele monitor removed, Discharge packet printed and reviewed with pt. PT declined offer of Addendum: 01/14/17 at 1631 by SULTANA NAM RN wheelchair. Pt escorted from [facility] by this RN to the elevator, to meet ride home at hospital entrance.
--- NOTE | 2017-01-14 16:57 | PCM.HPMED ---
Subjective Date of Service Jan 14, 2017 Primary Provider: Admitting Physician: Joey Machado MD Primary Care Physician: Lakshmi Layton Attending Physician: Joey Machado MD Chief Complaint: Chest pain, nausea, diaphoresis and palpitations History of Present Illness: 31 year old obese female with a history of suspected stress induced cardiomyopathy in the past and anxiety presents with complaint of feeling nauseated, diaphoretic, palpitations and feeling as though she was "floating" after she took Isosorbide earlier in the morning for the first time (as prescribed by her manager msw, Dr Wells, 2 days earlier). Those symptoms have now significantly subsided but she still complains of acute on chronic persistent chest pain. Her chest pain episodes are typically transient, but today they have persisted throughout the day. She has been seen in the ER and by her manager msw several times since August 2016 when her symptom first began following a significant allergic reaction to Avocado with suspected stress induced cardiomyopathy at that time. Her workup in recent weeks has been notable for a repeat echocardiogram on 09/13 which showed: "Compared to the previous study of 09/11/16, the EF has normalized and the previously described wall motion abnormalities are no longer present", CTA of chest that ruled out PE on 10/25/16, a "normal stress echocardiogram" on 12/27/16, as well as an unremarkable Holter monitor recently. Her workup in the ED today was notable for 2 sets of Troponin that was negative and patient was admitted to complete the cycling of her cardiac enzymes. In addition to the noted above patient reports a migraine headache earlier but not now. She thinks she may have lost some weight since August 2016. She otherwise denies any significant shortness of breath. Does report some lightheadedness with ambulation earlier today but denies any right now. 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 Allergies Coded Allergies: avocado (Verified Allergy, Unknown, 11/27/16) citalopram (Verified Allergy, Unknown, 11/27/16) hydroxyzine (Verified Allergy, Unknown, oversedation, 11/27/16) phenazopyridine (Verified Allergy, Unknown, 11/27/16) Uncoded Allergies: POLYMYXIN SULFATE (Allergy, Unknown, 09/28/15) Home Medications Albuterol HFA 8.5 Gm Hfa.Aer.Ad (Proair HFA) 2 Puffs INHALATION Q4H PRN Epinephrine 0.3 Mg/0.3 Ml Auto.Injct (Epipen 2-Prem) 0.3 Mg IJ ONCE PRN Aspirin Chew 81 Mg Chew 81 Mg PO DAILY Lorazepam 0.5 Mg Tablet (Ativan) 0.5 Mg PO TID PRN Beclomethasone Dipropionate 8.7 Gm Aer.W.Adap (Qvar) 8.7 Gm IH BID Budesonide/Formoterol 80-4.5 mcg Inh 120 Puff Inhaler (Symbicort 80-4.5 mcg Inh) 2 Puffs PRN Metronidazole 45 Gm Gel..Gram. (Metronidazole Gel) 1 Applic TOPICAL DAILY [implanon] 68 Mg IMPLANT Exam Vital Signs & I/O Vital Sign- Last 8 Hours Date Time Temp Pulse Resp B/P Pulse Ox O2 Delivery O2 Flow Rate FiO2 01/14/17 14:49 36.7 84 18 99/62 97 Room Air 01/14/17 10:56 36.4 77 20 99/65 97 Room Air 01/14/17 10:51 85 Intake and Output- Last 8 Hour 01/14/17 Cumulative From/Thru 07:00 01/14/17 00:07 - 01/14/17 06:26 Intake Total 1000 ml 1000 ml Balance 1000 ml 1000 ml Intake IV Total 1000 ml 1000 ml # Voids 1 1 Lab & Micro Results Laboratory Tests Test 01/14/17 00:30 01/14/17 01:26 01/14/17 03:05 01/14/17 06:00 White Blood Count 11.1th/mm3 (3.8-10.1) Red Blood Count 4.97mil/mm3 (3.90-5.20) Hemoglobin 14.1g/dL (12.0-15.6) Hematocrit 39.7% (35.0-46.0) Mean Corpuscular Volume 79.9fL (81-100) Mean Corpuscular Hemoglobin 28.4pg (27.0-35.0) Mean Corpuscular Hemoglobin Concent 35.5% (32.0-37.0) Red Cell Distribution Width 13.3% (12.3-15.4) Platelet Count 359bil/L (150-400) Neutrophils (%) (Auto) 64.2% (40-74) Lymphocytes (%) (Auto) 27.8% (14-46) Monocytes (%) (Auto) 6.7% (4-12) Eosinophils (%) (Auto) 1.0% (0-5) Basophils (%) (Auto) 0.1% (0-3) Prothrombin Time 10.7sec (8.1-12.5) Prothromb Time International Ratio 1.00ratio Activated Partial Thromboplast Time 28.2sec (22.8-33.0) D-Dimer < 0.50mg/L FEU (<0.50) Sodium Level 137mEq/L (134-144) Potassium Level 3.8mEq/L (3.5-5.2) Chloride Level 101mEq/L (97-108) Carbon Dioxide Level 18mmol/L (18-29) Blood Urea Nitrogen 10mg/dL (6-20) Creatinine 0.70mg/dL (0.57-1.00) Estimat Glomerular Filtration Rate 141mL/min (>59) Glucose Level 120mg/dL (60-99) Calcium Level 9.1mg/dL (8.5-10.1) Magnesium Level 2.0mg/dL (1.6-2.6) Total Bilirubin 0.2mg/dL (0.0-1.2) Aspartate Amino Transf (AST/SGOT) 25U/L (0-50) Alanine Aminotransferase (ALT/SGPT) 31U/L (0-32) Alkaline Phosphatase 86U/L (25-150) Troponin T 0.010ug/L (0.0-0.011) 0.010ug/L (0.0-0.011) 0.010ug/L (0.0-0.011) Total Protein 7.3g/dL (6.4-8.4) Albumin 3.9g/dL (3.4-5.0) Hold Philippe Top Tube Received (Received) Hold Urine Received (Received) Total Creatine Kinase 69U/L (21-215) Creatine Kinase MB 1.0ng/mL (0.0-5.3) Creatine Kinase MB % % (0.0-5.0) Test 01/14/17 11:25 Total Creatine Kinase 68U/L (21-215) Creatine Kinase MB 1.0ng/mL (0.0-5.3) Creatine Kinase MB % % (0.0-5.0) Troponin T 0.010ug/L (0.0-0.011) Result Diagram: 01/14/17 0030 01/14/17 0030 Review of Systems: Constitutional: Negative, except as otherwise mentioned in the history above. Ophthalmologic: Negative, except as otherwise mentioned in the history above. Cardiovascular: Negative, except as otherwise mentioned in the history above. Respiratory: Negative, except as otherwise mentioned in the history above. Gastrointestinal: Negative, except as otherwise mentioned in the history above. Genitourinary: Negative, except as otherwise mentioned in the history above. Musculoskeletal: Negative, except as otherwise mentioned in the history above. Neurological: Negative, except as otherwise mentioned in the history above. Psychiatric: Negative, except as otherwise mentioned in the history above. Hematologic/Lymphatic: Negative, except as otherwise mentioned in the history above. Allergic/Immunologic: Negative, except as otherwise mentioned in the history above. PMH 1. acute stress cardiomyopathy ,resolved -stress CMP due to stress from anaphylaxis vs stress from IV epinephrine injection . 2. Anaphylaxis, acute. Present on admission. Improved. 3. Anxiety, chronic. 4. Asthma, chronic. 5. Obesity Surgical History Lisfranc surgery on Left foot Family History Mother at 47 from stroke Grandfather also had a stroke Social History Hx Alcohol Use: Yes ("occasionally") Hx Substance Use: No Hx Tobacco Use: No Smoking Status: Never Smoker Exam Vital Signs Vital Sign - Last Date Time Temp Pulse Resp B/P Pulse Ox O2 Delivery O2 Flow Rate FiO2 01/14/17 14:49 36.7 84 18 99/62 97 Room Air Intake and Output 01/13/17 01/13/17 01/14/17 Cumulative From/Thru 15:00 23:00 07:00 01/14/17 00:07 - 01/14/17 06:26 Intake Total 1000 ml 1000 ml Balance 1000 ml 1000 ml Intake IV Total 1000 ml 1000 ml # Voids 1 1 General: Alert, Oriented X3, Cooperative, No Acute Distress Head: Normal Eyes: PERRLA, EOMI, Scleral Anicteric Nose: Mucous Membr Moist/[place] Mouth: Mucous Membr Moist/[place] Neck: Supple Chest & Lungs: Clear to auscultation & percussion, Other (anterior chest wall is tender to palpation diffusely with chest pain described by the patient clearly reproducible with palpation.) Cardiovascular: Regular Rate/Rhythm Pulses: NL carotid, radial, femoral, DP, PT Abdomen: Non-tender, Non-distended, Normoactive bowel tones, Soft Extremities: No cyanosis/clubbing/edma bilat Skin: Other (eczema covering most of the face and forehead. tattoo noted on anterior left upper chest wall.) Neurological: Grossly Neurologically Intact, Cranial Nerves 2-12 Intact, Normal Speech Lymphatic: Other Lymph Nodes (no signficant lymphadenopathy) Lab and Diagnostics Result Diagram: 01/14/172901/14/1729 X-Rays, CTs and MRIs Date of Service: 01/14/1720 PROCEDURE: X-RAY CHEST ONE VIEW, PORTABLE ([id number]) IMPRESSION: No acute cardiopulmonary disease. Dictated by: Alejo Dugan M.D. on 01/14/2017 at 10:40 Approved by: Alejo Dugan M.D. on 01/14/2017 at 10:40 12-lead ECG NSR at about [address] elevation/depression noted. Assessment & Plan 31 year old obese female with a history of suspected stress induced cardiomyopathy in the past and anxiety presents with complaint of feeling nauseated, diaphoretic, palpitations and feeling as though she was "floating" after she took Isosorbide earlier in the morning for the first time (as prescribed by her manager msw, Dr Wells, 2 days earlier). Those symptoms have now significantly subsided but she still complains of acute on chronic persistent chest pain. Her chest pain episodes are typically transient, but today they have persisted throughout the day. # Acute on chronic chest pain. present on admission. ongoing - This pain is clearly reproducible with palpation and typical of costochondritis - In fact patient makes a note that her chest pain seems to improve with Toradol but not Morphine - She has already ruled out for acute IN with serial negative Trop at the time of my interviewing the patient - Given her extensive negative cardiac workup including a very recent stress test I will not pursue any further cardiac workup at this time and will defer further followup of possible cardiac issues to her manager msw (Dr. Wells) in the outpatient setting (patient reports she has another appointment with Dr. Wells soon) - Will treat patient with Ibuprofen for presumed costochondritis - Recommend further close followup with PCP - Patient also provided with patient education and information from "[facility]" regarding additional non-medication treatment of costochondritis # Acute nausea, diaphoresis and palpitations, prior to admission. Resolved - Likely side-effect of Isosorbide that was started for the first time before the onset of symptoms - Patient instructed to stop taking this medication and instead followup with her manager msw (Dr. Wells) for further recommendation # History of asthma. stable # History of anxiety. presume stable - Continue with home medication Disposition: patient wishes to be discharged home at this time and given no plan for further workup for now will discharge her home later today. Resuscitation Status: CPR: Attempt Resuscitation (discussed and verified with the patient) Time spent 60 min Christopher Corea Jan 14, 2017 16:56
--- NOTE | 2017-01-14 17:40 | PCM.DC.MED ---
Discharge Summary Date of Service Jan 14, 2017 Dates of Hospitalization Date of Hospital Admission Jan 14, 2017 at 05:38 Date of Discharge: Jan 14, 2017 Providers: Admitting Physician: Joey Machado MD Primary Care Physician: Lakshmi Layton Attending Physician: Joey Machado MD Diagnosis at Time of Discharge Diagnosis at Time of Discharge 1. Acute chest pain most likely acute Costochondritis. Present on admission. Ongoing. - ruled out for myocardial infarction with negative serial cardiac enzymes. 2. Acute nausea, diaphoresis and palpitations, present prior to presentation. Likely side effect of new medication, Isosorbide. Resolved. Procedures XRay, CTs & MRIs Date of Service: 01/14/17 0021 PROCEDURE: X-RAY CHEST ONE VIEW, PORTABLE ([id number]) IMPRESSION: No acute cardiopulmonary disease. Dictated by: Alejo Dugan M.D. on 01/14/2017 at 10:40 Approved by: Alejo Dugan M.D. on 01/14/2017 at 10:40 ECG 12 Lead NSR at about [address] elevation/depression noted. Brief History 31 year old obese female with a history of suspected stress induced cardiomyopathy in the past and anxiety presents with complaint of feeling nauseated, diaphoretic, palpitations and feeling as though she was "floating" after she took Isosorbide earlier in the morning for the first time (as prescribed by her locksmith helper, Dr Wells, 2 days earlier). Those symptoms have now significantly subsided but she still complains of acute on chronic persistent chest pain. Her chest pain episodes are typically transient, but today they have persisted throughout the day. She has been seen in the ER and by her locksmith helper several times since August 2016 when her symptom first began following a significant allergic reaction to Avocado with suspected stress induced cardiomyopathy at that time. Her workup in recent weeks has been notable for a repeat echocardiogram on 09/13 which showed: "Compared to the previous study of 09/11/16, the EF has normalized and the previously described wall motion abnormalities are no longer present", CTA of chest that ruled out PE on 10/25/16, a "normal stress echocardiogram" on 12/27/16, as well as an unremarkable Holter monitor recently. Her workup in the ED today was notable for 2 sets of Troponin that was negative and patient was admitted to complete the cycling of her cardiac enzymes. In addition to the noted above patient reports a migraine headache earlier but not now. She thinks she may have lost some weight since August 2016. She otherwise denies any significant shortness of breath. Does report some lightheadedness with ambulation earlier today but denies any right now. 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 Hospital Course # Acute on chronic chest pain. present on admission. ongoing - This pain is clearly reproducible with palpation and typical of costochondritis - In fact patient makes a note that her chest pain seems to improve with Toradol but not Morphine - She has already ruled out for acute CO with serial negative Trop at the time of my interviewing the patient - Given her extensive negative cardiac workup including a very recent stress test I will not pursue any further cardiac workup at this time and will defer further followup of possible cardiac issues to her locksmith helper (Dr. Wells) in the outpatient setting (patient reports she has another appointment with Dr. Wells soon) - Will treat patient with Ibuprofen for presumed costochondritis - Recommend further close followup with PCP - Patient also provided with patient education and information from "[facility]" regarding additional non-medication treatment of costochondritis # Acute nausea, diaphoresis and palpitations, prior to admission. Resolved - Likely side-effect of Isosorbide that was started for the first time before the onset of symptoms - Patient instructed to stop taking this medication and instead followup with her locksmith helper (Dr. Wells) for further recommendation # History of asthma. stable # History of anxiety. presume stable - Continue with home medication Exam Vital Signs (Last) Date Time Temp Pulse Resp B/P Pulse Ox O2 Delivery O2 Flow Rate FiO2 01/14/17 14:49 36.7 84 18 99/62 97 Room Air Test 01/14/17 00:30 01/14/17 01:26 01/14/17 11:25 White Blood Count 11.1th/mm3 (3.8-10.1) Red Blood Count 4.97mil/mm3 (3.90-5.20) Hemoglobin 14.1g/dL (12.0-15.6) Hematocrit 39.7% (35.0-46.0) Mean Corpuscular Volume 79.9fL (81-100) Mean Corpuscular Hemoglobin 28.4pg (27.0-35.0) Mean Corpuscular Hemoglobin Concent 35.5% (32.0-37.0) Red Cell Distribution Width 13.3% (12.3-15.4) Platelet Count 359bil/L (150-400) Neutrophils (%) (Auto) 64.2% (40-74) Lymphocytes (%) (Auto) 27.8% (14-46) Monocytes (%) (Auto) 6.7% (4-12) Eosinophils (%) (Auto) 1.0% (0-5) Basophils (%) (Auto) 0.1% (0-3) Prothrombin Time 10.7sec (8.1-12.5) Prothromb Time International Ratio 1.00ratio Activated Partial Thromboplast Time 28.2sec (22.8-33.0) D-Dimer < 0.50mg/L FEU (<0.50) Sodium Level 137mEq/L (134-144) Potassium Level 3.8mEq/L (3.5-5.2) Chloride Level 101mEq/L (97-108) Carbon Dioxide Level 18mmol/L (18-29) Blood Urea Nitrogen 10mg/dL (6-20) Creatinine 0.70mg/dL (0.57-1.00) Estimat Glomerular Filtration Rate 141mL/min (>59) Glucose Level 120mg/dL (60-99) Calcium Level 9.1mg/dL (8.5-10.1) Magnesium Level 2.0mg/dL (1.6-2.6) Total Bilirubin 0.2mg/dL (0.0-1.2) Aspartate Amino Transf (AST/SGOT) 25U/L (0-50) Alanine Aminotransferase (ALT/SGPT) 31U/L (0-32) Alkaline Phosphatase 86U/L (25-150) Total Protein 7.3g/dL (6.4-8.4) Albumin 3.9g/dL (3.4-5.0) Hold Philippe Top Tube Received (Received) Hold Urine Received (Received) Total Creatine Kinase 68U/L (21-215) Creatine Kinase MB 1.0ng/mL (0.0-5.3) Creatine Kinase MB % % (0.0-5.0) Troponin T 0.010ug/L (0.0-0.011) Discharge Medications Discharge Medications Acetic Acid/Hydrocortisone Otic Soln (Acetic Acid/Hydrocortisone Otic Soln) 10 Ml Drops 1 GTT BOTH_EARS BID (Reported) Aspirin Chew (Aspirin Chew) 81 Mg Chew 81 MG PO DAILY Prescribed by: KAI LAYNE MD Beclomethasone Dipropionate (Qvar) 8.7 Gm Aer.w.adap 8.7 GM IH BID (Reported) Metronidazole (Metronidazole Gel) 45 Gm Gel..gram. 1 APPLIC TOPICAL DAILY ( Reported) As needed Albuterol HFA (Proair HFA) 8.5 Gm Hfa.aer.ad 2 PUFFS INHALATION Q4H PRN PRN For Shortness of Breath (Reported) Budesonide/Formoterol 80-4.5 mcg Inh (Symbicort 80-4.5 mcg Inh) 120 Puff Inhaler 2 PUFFS PRN For Shortness of Breath (Reported) Epinephrine (Epipen 2-Prem) 0.3 Mg/0.3 Ml Auto.injct 0.3 MG IJ ONCE PRN PRN For Anaphyllaxis Prescribed by: KAI LAYNE MD Ibuprofen (Ibuprofen) 400 Mg Tablet 400 MG PO TIDWM PRN PRN For Pain Prescribed by: PETER TUCKER MD Lorazepam (Ativan) 0.5 Mg Tablet 0.5 MG PO TID PRN PRN For Anxiety Prescribed by: KAI LAYNE MD Miscellaneous Medications ([implanon]) 68 MG IMPLANT (Reported) Followup Plan Disposition: Home Follow-up plan 1. Followup with primary care provider this coming week 2. Followup with your locksmith helper (Dr. Wells) as previously planned or sooner if needed. Discharge Diet: Heart Healthy Discharge Activity: No restrictions Patient Instructions Seek immediate medical attention if any new or worsening signs or symptoms occur. Follow-up Provider: Lakshmi Layotn Provider: Sienna Wells MD Time spent 30 min copies to: Lakshmi Layton; Sienna Wells MD, Masoud Jan 14, 2017 17:40
== END 2017-01-14 16:35 | disposition home or self-care (01) ==
LOC: SED 23:58 → MPC 01-14 05:38
PROVIDERS: ADMIT Hospitalist; ATTEND Hospitalist
DX: R07.89 Other chest pain (principal); R11.0 Nausea; R00.2 Palpitations; J45.909 Unspecified asthma, uncomplicated; F41.9 Anxiety disorder, unspecified; E66.9 Obesity, unspecified; Z79.82 Long term (current) use of aspirin; Z79.899 Other long term (current) drug therapy
CPT/HCPCS: 36415; 71010; 80053; 81002; 81025; 82550; 82553; 83036; 83735; 84484; 85025; 85378; 85610; 85730; 96361; 96374; 96375; 96376; 99285; G0378; J1644; J1885; J2060; J2270; J2405; J7030

== ENCOUNTER 2017-02-11 19:58 | Emergency (ER) | payer OTHER ==
[~2017-02-11] VITALS: Ht 162.6 cm; Wt 134.1 kg
[~2017-02-11 19:58] MED LIST changes: +ACET10DR4 BOTH_EARS; -GUAI118L13 PO; +IBUP400T22 PO; +METR45GE11 TOPICAL
--- NOTE | 2017-02-11 20:07 | ED.REPORT ---
HPI-Chest Pain Under 40 Date of Service February 11, 2017 ED Provider: Ron Stewart DO A 31 year old female with a history of anxiety, cardiomyopathy, CAD, asthma, CHF and depression presents to the ED complaining of substernal chest pain, described as "burning pressure." The pt often experiences this pain and has been seen in the ED and by her freight coordinator frequently without a definitive diagnosis. She became concerned today because the pain began radiating down her left arm. This is accompanied by diaphoresis, nausea and anxiety. The pt has an appointment in three days for an ultrasound. Nursing Notes Stated Complaint: CHEST PAIN Nursing Notes Reviewed: Yes Allergies: Coded Allergies: avocado (Verified Allergy, Unknown, 02/11/17) citalopram (Verified Allergy, Unknown, 02/11/17) hydroxyzine (Verified Allergy, Unknown, oversedation, 02/11/17) phenazopyridine (Verified Allergy, Unknown, 02/11/17) Uncoded Allergies: POLYMYXIN SULFATE (Allergy, Unknown, 09/28/15) Scheduled Acetic Acid/Hydrocortisone Otic Soln (Acetic Acid/Hydrocortisone Otic Soln) 10 Ml Drops 1 GTT BOTH_EARS BID Aspirin Chew (Aspirin Chew) 81 Mg Chew 81 MG PO DAILY Beclomethasone Dipropionate (Qvar) 8.7 Gm Aer.w.adap 8.7 GM IH BID Metronidazole (Metronidazole Gel) 45 Gm Gel..gram. 1 APPLIC TOPICAL DAILY Scheduled PRN Albuterol HFA (Proair HFA) 8.5 Gm Hfa.aer.ad 2 PUFFS INHALATION Q4H PRN PRN For Shortness of Breath Budesonide/Formoterol 80-4.5 mcg Inh (Symbicort 80-4.5 mcg Inh) 120 Puff Inhaler 2 PUFFS PRN For Shortness of Breath Epinephrine (Epipen 2-Prem) 0.3 Mg/0.3 Ml Auto.injct 0.3 MG IJ ONCE PRN PRN For Anaphyllaxis Ibuprofen (Ibuprofen) 400 Mg Tablet 400 MG PO TIDWM PRN PRN For Pain Lorazepam (Ativan) 0.5 Mg Tablet 0.5 MG PO TID PRN PRN For Anxiety Miscellaneous Medications ([implanon]) 68 MG IMPLANT General Time Seen by MD: 20:07 Chief Complaint Chest pain Hx Obtained From: Patient Arrived By: Walk-in Sudden in Onset?: Yes Recent Healthcare: Recent doctor visit, Recent hospitalization Similar Sx Previous: Yes Past Medical History Past Medical History Notes: Seen in ED 05/09 dx w/Varicella (started on Acyclovir) PCP: Dr. 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 Physical Exam Initial Vital Signs Vital Signs (First) Date Time Temp Pulse Resp B/P Pulse Ox O2 Delivery O2 Flow Rate FiO2 02/11/17 20:11 36.5 86 24 110/92 98 Room Air Initial VS: Reviewed General/Constitutional: Awake, Alert Behavior: Positive: Tearful Appearance / Presentation: Positive: Obese Respiratory / Chest: Breath sounds NL, Breath sounds = bilat, No respiratory distress tender chest wall Cardiovascular: Heart rate NL, Regular rhythm, Heart sounds NL Neck: Atraumatic, Supple, Full range of motion Abdomen: Atraumatic, Soft, Non-tender Back: Atraumatic, Full range of motion Lower Extremity / Pelvis / MS: Atraumatic, Full range of motion Skin: Atraumatic, Color NL, No rash, Warm, Dry Neurologic: Oriented X3, Speech NL, No motor deficits, No sensory deficits Psychiatric: Affect NL Abnormal Mood/Affect: Positive: Anxious Head / Eyes: Atraumatic, Normocephalic, PERRL, EOMI ENT: Atraumatic, Airway patent, Mucous membranes moist Upper Extremity / MS: Atraumatic, Full range of motion Interpretation & Diagnostics Lab Results Interpretation Result Diagram: 02/11/17204602/11/172046 Test 02/11/17 20:10 02/11/17 20:47 02/11/17 23:25 Hold Purple Top Tube Received (Received) D-Dimer < 0.50mg/L FEU (<0.50) Hold Blue Top Tube Received (Received) Hold Mcclure Top Tube Received (Received) White Blood Count 10.3th/mm3 (3.8-10.1) Red Blood Count 5.28mil/mm3 (3.90-5.20) Hemoglobin 14.7g/dL (12.0-15.6) Hematocrit 44.3% (35.0-46.0) Mean Corpuscular Volume 83.9fL (81-100) Mean Corpuscular Hemoglobin 27.8pg (27.0-35.0) Mean Corpuscular Hemoglobin Concent 33.2% (32.0-37.0) Red Cell Distribution Width 13.1% (12.3-15.4) Platelet Count 352bil/L (150-400) Neutrophils (%) (Auto) 62.8% (40-74) Lymphocytes (%) (Auto) 28.0% (14-46) Monocytes (%) (Auto) 6.9% (4-12) Eosinophils (%) (Auto) 1.8% (0-5) Basophils (%) (Auto) 0.2% (0-3) Sodium Level 138mEq/L (134-144) Potassium Level 4.2mEq/L (3.5-5.2) Chloride Level 101mEq/L (97-108) Carbon Dioxide Level 20mmol/L (18-29) Blood Urea Nitrogen 9mg/dL (6-20) Creatinine 0.81mg/dL (0.57-1.00) Estimat Glomerular Filtration Rate 119mL/min (>59) Glucose Level 96mg/dL (60-99) Calcium Level 9.8mg/dL (8.5-10.1) Total Bilirubin 0.3mg/dL (0.0-1.2) Aspartate Amino Transf (AST/SGOT) 24U/L (0-50) Alanine Aminotransferase (ALT/SGPT) 22U/L (0-32) Alkaline Phosphatase 94U/L (25-150) C-Reactive Protein 1.3mg/dL (0.0-0.5) Total Protein 8.0g/dL (6.4-8.4) Albumin 4.0g/dL (3.4-5.0) Troponin T 0.010ug/L (0.0-0.011) Pulse Oximetry Interpretation Pulse Oximetry Interpretation: 98% on room air Pulse Oximetry: Pulse Ox normal ECG Interpretation ECG Interpretation: sinus tachycardia with a rate of 108 no signs of ischemia Time: 20:06 Interpreted by: ED physician X-Ray Chest Interpretation Chest Xray Interpretation: IMPRESSION: 1. No acute cardiopulmonary disease. Dictated by: Gordy Bonner M.D. on 02/11/2017 at 22:09 Approved by: Gordy Bonner M.D. on 02/11/2017 at 22:09 Interpretation / Wet Read by: Interpret - Radiologist Re-Eval/Medical Decision Med Decision/Clinical Course 31-year-old female with clearly reproducible chest pain with palpation. Significant component of anxiety. NM ruled out with EKG and serial troponins. She has low risk Wells score. Pulmonary NM rule out criteria that met. Negative d-dimer. Pulmonary emboli testing not indicated. Aortic dissection unlikely. Symmetric blood pressures. No ripping or tearing pain. Ms. Olmstead is not widened. Negative d-dimer. CT angiogram not indicated. She is treated with aliquots of anxiolytics and pain medicine. She felt better. Troponins are reassuring. Close outpatient follow-up recommended. Source of Hx: Old records Re-Evaluation/Progress #1: Time of Eval: 23:22 Patient Status: Condition improved Re-Evaluation/Progress Note: Pt rechecked, who is feeling more relaxed. Radiology results are discussed. Re-Evaluation/Progress #2: Time of Eval: 00:25 Patient Status: Condition improved Re-Evaluation/Progress Note: Pt rechecked, who is comfortable. The diagnosis and plan for discharge are discussed. The pt understands and agrees with the plan. All questions are addressed at this time. Counseled Regarding: Diagnosis, Lab results, Need for follow-up, When/why to return to ED Discharge & Departure Primary Impression: Chest pain Chest pain type: unspecified Qualified Code: R07.9 - Chest pain, unspecified Disposition: Home Discharge Condition All VS Reviewed: Yes Condition: Stable Patient Instructions: Chest Pain (ED) Additional Instructions: Your EKG and serial heart enzymes were all normal. Your blood clot blood test was negative. Your chest x-ray is normal. The laboratory work is reassuring. There are no signs of a heart attack or blood clot. No signs of aortic dissection or pneumothorax. The cause of your pain is uncertain and needs close follow-up. Your chest wall is certainly tender to palpation. Take 1-2 Percocet every 6 hours as needed for severe pain. I would like you to call your freight coordinator and primary care physician in the morning for close follow-up. Do not drive or drink alcohol or consume acetaminophen while taking the Percocet. Do not drive or take any sedatives negative receive sedating medications. Do not hesitate to return if any problems or any new or worsening symptoms. Referrals: Lakshmi Layton (PCP) Sienna Wells MD Attestation Portions of this note were transcribed by Joe Byrne. I, Dr. Stewart personally performed the history, physical exam and medical decision-making; I reviewed and confirmed the accuracy of the information in the transcribed note. Signed by: Jarrett Muñiz, 02/12/17 and 0037. copies to: Lakshmi Layton; Sienna Wells MD, Todd P DO February 11, 2017 20:07 JOE BYRNE February 11, 2017 20:30
[2017-02-11 20:11] VITALS: BP 110/92; PULSE 86; RESP 24; O2SAT 98
[2017-02-11] MEDS ORDERED: Ondansetron 2 mg/mL 2 mL Inj IVPUSH PRN (20:50)
[2017-02-11] MEDS ORDERED: Pantoprazole 4 mg/mL 10 mL Inj IVPUSH ONE (20:50)
[2017-02-11] MEDS: HYDROmorphone 0.5 mg/0.5 mL iSecure Syringe IVPUSH PRN ×2 (21:05→21:57)
[2017-02-11 21:08] LABS: BASOPHILS % (AUTO) 0.2 % (0-3); EOSINOPHILS % (AUTO) 1.8 % (0-5); MONOCYTES % (AUTO) 6.9 % (4-12); Mean Corpuscular Hemoglobin 27.8 pg (27.0-35.0); Mean Corpuscular Volume 83.9 fL (81-100); NEUTROPHILS % (AUTO) 62.8 % (40-74); Platelet Count 352 bil/L (150-400)
[2017-02-11 21:15] LABS: TROPONIN T 0.01 ug/L (0.0-0.011)
[2017-02-11 21:27] VITALS: BP 105/43; PULSE 88; RESP 18; O2SAT 97
--- NOTE | 2017-02-11 22:16 | DRSVH ---
PROCEDURE: X-RAY CHEST ONE VIEW, PORTABLE ([id number]) INDICATIONS: chest pain TECHNIQUE: One view of the chest was acquired. COMPARISON: [facility], CR, XR CHEST 1VW (PORTABLE), 01/14/2017, 0:20. FINDINGS: Surgical changes and devices: None. Lungs and pleura: No pleural effusions or pneumothorax. Lungs are clear. Mediastinum: Mediastinal contours appear normal. Heart size is normal. Bones and chest wall: No suspicious bony lesions. Overlying soft tissues appear unremarkable. IMPRESSION: 1. No acute cardiopulmonary disease. Dictated by: Gordy Bonner M.D. on 02/11/2017 at 22:09 Approved by: Gordy Bonner M.D. on 02/11/2017 at 22:09
[2017-02-11 23:00] VITALS: BP 91/48; PULSE 77; RESP 16; O2SAT 96
[2017-02-12] MEDS ORDERED: _oxyCODONE/APAP 5-325 mg Tablet PO PRN (00:30)
[2017-02-12 01:06] VITALS: BP 93/72; PULSE 65; RESP 16; O2SAT 96
== END 2017-02-12 01:06 | disposition home or self-care (01) ==
LOC: SED 19:58
DX: R07.9 Chest pain, unspecified (principal); I50.9 Heart failure, unspecified; I25.10 Atherosclerotic heart disease of native coronary artery without angina pectoris; I42.9 Cardiomyopathy, unspecified; J45.909 Unspecified asthma, uncomplicated; Z79.82 Long term (current) use of aspirin; Z79.899 Other long term (current) drug therapy; Z88.8 Allergy status to other drugs, medicaments and biological substances
CPT/HCPCS: 36415; 71010; 80053; 84484; 85025; 85378; 86140; 93005; 96374; 96375; 96376; 99285; J1170; J1885; J2060; J2405

== ENCOUNTER 2017-02-27 12:25 | Emergency (ER) | payer OTHER ==
[~2017-02-27] VITALS: Ht 162.6 cm; Wt 129.6 kg
[2017-02-27 12:27] VITALS: BP 125/83; PULSE 83; RESP 18; O2SAT 97
--- NOTE | 2017-02-27 13:28 | ED.REPORT ---
HPI-Chest Pain Under 40 Date of Service February 27, 2017 ED Provider: Lucio Carrion MD The patient is a 31 year old female with history of anxiety, stress cardiomyopathy, and congestive heart failure, who presents to the emergency department complaining of intermittent midsternal chest pain that began 3 days ago. She has experienced similar pain since she went into anaphylactic shock in August of 2016. She has also noticed lower extremity cramping, dizziness, nausea, and diaphoresis. She has been seen by Dr. Wells numerous times and is currently being worked up for these symptoms. She had a normal stress echocardiogram on December 27 of this year. She was seen in the ED on February 11, was given 1.5 mg IV Dilaudid in the department, and was sent home with oxycodone. She had an abdominal ultrasound done on February 14 that showed mild hepatic echotexture coarsening may be seen with chronic hepatic disease. Otherwise normal abdominal ultrasound. Nursing Notes Stated Complaint: CHEST PAIN Chief Complaint: Chest Pain Nursing Notes Reviewed: Yes Allergies: Coded Allergies: avocado (Verified Allergy, Unknown, 02/11/17) citalopram (Verified Allergy, Unknown, 02/11/17) hydroxyzine (Verified Allergy, Unknown, oversedation, 02/11/17) phenazopyridine (Verified Allergy, Unknown, 02/11/17) Uncoded Allergies: POLYMYXIN SULFATE (Allergy, Unknown, 09/28/15) Scheduled Acetic Acid/Hydrocortisone Otic Soln (Acetic Acid/Hydrocortisone Otic Soln) 10 Ml Drops 1 GTT BOTH_EARS BID Aspirin Chew (Aspirin Chew) 81 Mg Chew 81 MG PO DAILY Beclomethasone Dipropionate (Qvar) 8.7 Gm Aer.w.adap 8.7 GM IH BID Metronidazole (Metronidazole Gel) 45 Gm Gel..gram. 1 APPLIC TOPICAL DAILY Scheduled PRN Albuterol HFA (Proair HFA) 8.5 Gm Hfa.aer.ad 2 PUFFS INHALATION Q4H PRN PRN For Shortness of Breath Budesonide/Formoterol 80-4.5 mcg Inh (Symbicort 80-4.5 mcg Inh) 120 Puff Inhaler 2 PUFFS PRN For Shortness of Breath Epinephrine (Epipen 2-Prem) 0.3 Mg/0.3 Ml Auto.injct 0.3 MG IJ ONCE PRN PRN For Anaphyllaxis Ibuprofen (Ibuprofen) 400 Mg Tablet 400 MG PO TIDWM PRN PRN For Pain Lorazepam (Ativan) 0.5 Mg Tablet 0.5 MG PO TID PRN PRN For Anxiety Miscellaneous Medications ([implanon]) 68 MG IMPLANT General Time Seen by MD: 12:42 Chief Complaint Chest pain Hx Obtained From: Patient Arrived By: Walk-in Sudden in Onset?: Yes Onset Occurred: 3 days ago Symptom Duration: Intermittent Location: : Substernal Quality: Painful Severity: Current: Moderate Severity: Maximum: Severe Recent Healthcare: No recent hospitalization, Recent doctor visit, Recent testing, Prior workup Similar Sx Previous: Yes Past Medical History Past Medical History Notes: PCP: Dr. 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 Physical Exam Initial Vital Signs Vital Signs (First) Date Time Temp Pulse Resp B/P Pulse Ox O2 Delivery O2 Flow Rate FiO2 30/17 12:27 36.2 83 18 125/83 97 Room Air Initial VS: Reviewed Head / Eyes: Atraumatic, Normocephalic, PERRL ENT: Mucous membranes moist, Conjunctiva normal, No scleral icterus Neck: Supple, Non-tender, Full range of motion Abdomen / GI: Soft, Non-tender, No guarding, No rebound, No distention Lymphatic: No lymphadenopathy Extremities: Vascular intact, Neuro intact, No swelling, No tenderness Skin: Warm, Dry, No cyanosis Neurologic: Alert, Oriented, Nonfocal Psychiatric: Mood/affect normal, Behavior normal, Normal thought content General/Constitutional: Awake, Alert Tearful and upset Respiratory / Chest: Atraumatic, Breath sounds NL, Breath sounds = bilat, No respiratory distress, No rales, No rhonchi, No wheezing, No chest tenderness Cardiovascular: Heart rate NL, Regular rhythm, Heart sounds NL, No gallop, No murmurs, No rubs, Peripheral circulation NL, Pulses = bilaterally, No gross BP differential Interpretation & Diagnostics Lab Results Interpretation Result Diagram: 02/27/17 1354 02/27/17 1354 Test 02/27/17 13:54 White Blood Count 9.2th/mm3 (3.8-10.1) Red Blood Count 4.90mil/mm3 (3.90-5.20) Hemoglobin 13.9g/dL (12.0-15.6) Hematocrit 41.3% (35.0-46.0) Mean Corpuscular Volume 84.3fL (81-100) Mean Corpuscular Hemoglobin 28.4pg (27.0-35.0) Mean Corpuscular Hemoglobin Concent 33.7% (32.0-37.0) Red Cell Distribution Width 13.4% (12.3-15.4) Platelet Count 280bil/L (150-400) Neutrophils (%) (Auto) 69.4% (40-74) Lymphocytes (%) (Auto) 21.3% (14-46) Monocytes (%) (Auto) 6.4% (4-12) Eosinophils (%) (Auto) 2.5% (0-5) Basophils (%) (Auto) 0.2% (0-3) Sodium Level 141mEq/L (134-144) Potassium Level 4.2mEq/L (3.5-5.2) Chloride Level 105mEq/L (97-108) Carbon Dioxide Level 21mmol/L (18-29) Blood Urea Nitrogen 13mg/dL (6-20) Creatinine 0.75mg/dL (0.57-1.00) Estimat Glomerular Filtration Rate 130mL/min (>59) Glucose Level 110mg/dL (60-99) Calcium Level 9.5mg/dL (8.5-10.1) Magnesium Level 2.0mg/dL (1.6-2.6) Total Bilirubin 0.3mg/dL (0.0-1.2) Aspartate Amino Transf (AST/SGOT) 19U/L (0-50) Alanine Aminotransferase (ALT/SGPT) 23U/L (0-32) Alkaline Phosphatase 87U/L (25-150) Troponin T < 0.010ug/L (0.0-0.011) Total Protein 6.5g/dL (6.4-8.4) Albumin 3.6g/dL (3.4-5.0) ECG Interpretation ECG Interpretation: Sinus rhythm with a rate of 78 Time: 12:36 Interpreted by: ED physician X-Ray Chest Interpretation Chest Xray Interpretation: IMPRESSION: Source of chest pain is not seen. Dictated by: Prince Mai M.D. on 02/27/2017 at 13:32 Interpretation / Wet Read by: Interpret - Radiologist Re-Eval/Medical Decision Med Decision/Clinical Course I had a lengthy discussion with the patient regarding her ongoing chest pain. I feel confident that there is no acute coronary ischemia currently. I believe that pain management is a significant issue. I told her that narcotics were a poor choice in this setting and that she would likely only end up with a narcotic addiction and no resolution to her pain if she continues to use these for the pain in her chest. I recommended that she try pain modulating medications like amitriptyline which she is willing to try at this time I will start her on a low dose now. I recommended close outpatient follow-up with her primary care provider. Source of Hx: Old records Re-Evaluation/Progress #1: Time of Eval: 14:37 Re-Evaluation/Progress Note: Rechecked the patient. She is up and ambulating to the restroom. Re-Evaluation/Progress #2: Time of Eval: 15:02 Re-Evaluation/Progress Note: Rechecked the patient. Discussed results, diagnosis, and plan for discharge. All questions were addressed. Counseled Regarding: Diagnosis, Lab results, Need for follow-up, When/why to return to ED Discharge & Departure Primary Impression: Chest pain Chest pain type: unspecified Qualified Code: R07.9 - Chest pain, unspecified Disposition: Home Discharge Condition All VS Reviewed: Yes Condition: Stable Patient Instructions: Chest Pain (ED) Additional Instructions: Thank you for entrusting us with your care today. Your workup today is reassuring. There is no evidence of a heart attack. While the pain source is being investigated, I recommend that you try amitriptyline every evening to see if this helps your pain chronically. Continue to followup with Dr. Wells. Return to the emergency department for any new or concerning symptoms. Referrals: Sienna Wells MD (PCP) Bethibjez Attestation Portions of this note were transcribed by Ama Georges. I, Dr. Carrion personally performed the history, physical exam and medical decision-making; I reviewed and confirmed the accuracy of the information in the transcribed note. Signed by: Jarrett Almazan, 02/27/2017 at 1510. copies to: Sienna Wells MD, Kirk H MD February 27, 2017 13:28 Ama Georges February 27, 2017 13:33
[2017-02-27] MEDS ORDERED: oxyCODONE-Acetamin 5-325 mg Tablet PO ONE (13:30)
[2017-02-27] MEDS ORDERED: MetoCLOpramide 5 mg/mL 2 mL Inj IM ONE (13:30)
--- NOTE | 2017-02-27 13:34 | DRSVH ---
PROCEDURE: X-RAY CHEST ONE VIEW, PORTABLE ([id number]) INDICATIONS: Chest pain TECHNIQUE: One view of the chest was acquired. COMPARISON: [facility], CR, XR CHEST 1VW (PORTABLE), 02/11/2017, 21:24. [facility], CR, XR CHEST 1VW (PORTABLE), 01/14/2017, 0:20. FINDINGS: Surgical changes and devices: None. Lungs and pleura: No pleural effusions or pneumothorax. Lungs are clear. Mediastinum: Mediastinal contours appear normal. Heart size is normal. Bones and chest wall: No suspicious bony lesions. Overlying soft tissues appear unremarkable. IMPRESSION: Source of chest pain is not seen. Dictated by: Prince Mai M.D. on 02/27/2017 at 13:32 Approved by: Prince Mai M.D. on 02/27/2017 at 13:32
[2017-02-27 14:01] LABS: BASOPHILS % (AUTO) 0.2 % (0-3); EOSINOPHILS % (AUTO) 2.5 % (0-5); MONOCYTES % (AUTO) 6.4 % (4-12); Mean Corpuscular Hemoglobin 28.4 pg (27.0-35.0); Mean Corpuscular Volume 84.3 fL (81-100); NEUTROPHILS % (AUTO) 69.4 % (40-74); Platelet Count 280 bil/L (150-400)
[2017-02-27 14:38] LABS: TROPONIN T < 0.010 ug/L (0.0-0.011)
[2017-02-27] MEDS ORDERED: AMT50T PO (15:12)
[2017-02-27 15:24] VITALS: BP 109/73; PULSE 88; RESP 16; O2SAT 100
== END 2017-02-27 15:25 | disposition home or self-care (01) ==
LOC: SED 12:25
DX: R07.9 Chest pain, unspecified (principal); R42 Dizziness and giddiness; R11.0 Nausea; R61 Generalized hyperhidrosis; R25.2 Cramp and spasm; I50.9 Heart failure, unspecified; J45.909 Unspecified asthma, uncomplicated; Z79.82 Long term (current) use of aspirin; Z88.8 Allergy status to other drugs, medicaments and biological substances; Z91.018 Allergy to other foods

== ENCOUNTER 2017-04-18 21:29 | Emergency (ER) | payer OTHER ==
[~2017-04-18] VITALS: Ht 162.6 cm; Wt 132.3 kg
[~2017-04-18 21:29] MED LIST changes: +AMT50T PO
[2017-04-18 21:30] VITALS: BP 157/94; PULSE 94; RESP 18; O2SAT 99
--- NOTE | 2017-04-18 21:58 | ED.REPORT ---
HPI-Chest Pain Under 40 Date of Service Apr 18, 2017 ED Provider: Devon Ayon MD A 32 year old female with a history of anxiety, morbid obesity, CHF, depression and frequent ED visits for similar symptoms presents to the ED complaining of chest pain. The pain is described as "pressure" that began three hours ago and has persisted since. This is accompanied by a feeling that her "body is swelling." The pt has experienced similar symptoms multiple times before. Has a presumed stress related cardiomyopathy. Multiple CP visits this year, [address] angios and a negative stress echo. Does not know what may have precipitated CP tonight. Nursing Notes Chief Complaint: Chest Pain Nursing Notes Reviewed: Yes Allergies: Coded Allergies: avocado (Verified Allergy, Unknown, 04/18/17) citalopram (Verified Allergy, Unknown, 04/18/17) hydroxyzine (Verified Allergy, Unknown, oversedation, 04/18/17) phenazopyridine (Verified Allergy, Unknown, 04/18/17) Uncoded Allergies: POLYMYXIN SULFATE (Allergy, Unknown, 09/28/15) Scheduled Acetic Acid/Hydrocortisone Otic Soln (Acetic Acid/Hydrocortisone Otic Soln) 10 Ml Drops 1 GTT BOTH_EARS BID Amitriptyline (Amitriptyline) 50 Mg Tab 50 MG PO HS Aspirin Chew (Aspirin Chew) 81 Mg Chew 81 MG PO DAILY Beclomethasone Dipropionate (Qvar) 8.7 Gm Aer.w.adap 8.7 GM IH BID Metronidazole (Metronidazole Gel) 45 Gm Gel..gram. 1 APPLIC TOPICAL DAILY Scheduled PRN Albuterol HFA (Proair HFA) 8.5 Gm Hfa.aer.ad 2 PUFFS INHALATION Q4H PRN PRN For Shortness of Breath Budesonide/Formoterol 80-4.5 mcg Inh (Symbicort 80-4.5 mcg Inh) 120 Puff Inhaler 2 PUFFS PRN For Shortness of Breath Epinephrine (Epipen 2-Prem) 0.3 Mg/0.3 Ml Auto.injct 0.3 MG IJ ONCE PRN PRN For Anaphyllaxis Ibuprofen (Ibuprofen) 400 Mg Tablet 400 MG PO TIDWM PRN PRN For Pain Lorazepam (Ativan) 0.5 Mg Tablet 0.5 MG PO TID PRN PRN For Anxiety Miscellaneous Medications ([implanon]) 68 MG IMPLANT General Time Seen by MD: 21:51 Chief Complaint Chest pain Hx Obtained From: Patient Arrived By: Walk-in Sudden in Onset?: No Onset Occurred: 1 - 4 hours ago Symptom Duration: Since onset Recent Healthcare: Recent doctor visit Similar Sx Previous: Yes Past Medical History Past Medical History Notes: PCP: Dr. 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 Physical Exam Initial Vital Signs Vital Signs (First) Date Time Temp Pulse Resp B/P Pulse Ox O2 Delivery O2 Flow Rate FiO2 04/18/17 21:30 36.4 94 18 157/94 99 Room Air Initial VS: Reviewed General/Constitutional: Awake, Alert Appearance / Presentation: Positive: Obese, morbidly writhing Respiratory / Chest: Atraumatic, Breath sounds NL, Breath sounds = bilat, No respiratory distress Cardiovascular: Heart rate NL, Regular rhythm, Heart sounds NL Neck: Atraumatic, Supple, Full range of motion Abdomen: Atraumatic, Soft, Non-tender Back: Atraumatic, Full range of motion Lower Extremity / Pelvis / MS: Atraumatic, Full range of motion Skin: Atraumatic, Color NL, No rash, Warm, Dry Neurologic: Oriented X3, Speech NL, No motor deficits, No sensory deficits Psychiatric: Mood NL Abnormal Mood/Affect: Positive: Anxious Head / Eyes: Atraumatic, Normocephalic, PERRL, EOMI ENT: Atraumatic, Airway patent, Mucous membranes moist Upper Extremity / MS: Atraumatic, Full range of motion Interpretation & Diagnostics Lab Results Interpretation Result Diagram: 7/221204/18/172212 Test 04/18/17 22:13 04/18/17 22:14 04/18/17 22:30 White Blood Count 10.4th/mm3 (3.8-10.1) Red Blood Count 4.89mil/mm3 (3.90-5.20) Hemoglobin 13.9g/dL (12.0-15.6) Hematocrit 41.5% (35.0-46.0) Mean Corpuscular Volume 84.9fL (81-100) Mean Corpuscular Hemoglobin 28.4pg (27.0-35.0) Mean Corpuscular Hemoglobin Concent 33.5% (32.0-37.0) Red Cell Distribution Width 13.5% (12.3-15.4) Platelet Count 286bil/L (150-400) Neutrophils (%) (Auto) 64.5% (40-74) Lymphocytes (%) (Auto) 26.9% (14-46) Monocytes (%) (Auto) 6.8% (4-12) Eosinophils (%) (Auto) 1.3% (0-5) Basophils (%) (Auto) 0.2% (0-3) D-Dimer < 0.50mg/L FEU (<0.50) Sodium Level 143mEq/L (134-144) Potassium Level 4.2mEq/L (3.5-5.2) Chloride Level 106mEq/L (97-108) Carbon Dioxide Level 22mmol/L (18-29) Blood Urea Nitrogen 16mg/dL (6-20) Creatinine 0.76mg/dL (0.57-1.00) Estimat Glomerular Filtration Rate 127mL/min (>59) Glucose Level 102mg/dL (60-99) Calcium Level 9.3mg/dL (8.5-10.1) Magnesium Level 1.9mg/dL (1.6-2.6) Total Bilirubin 0.2mg/dL (0.0-1.2) Aspartate Amino Transf (AST/SGOT) 23U/L (0-50) Alanine Aminotransferase (ALT/SGPT) 27U/L (0-32) Alkaline Phosphatase 87U/L (25-150) Troponin T 0.010ug/L (0.0-0.011) Total Protein 7.4g/dL (6.4-8.4) Albumin 3.6g/dL (3.4-5.0) Hold Philippe Top Tube Received (Received) Hold Urine Received (Received) ECG Interpretation ECG Interpretation: normal sinus rhythm with a rate of 81 probable anteroseptal infarct, old Time: 21:45 Interpreted by: ED physician X-Ray Chest Interpretation Chest Xray Interpretation: IMPRESSION: No acute disease is seen in the portable upright chest. Dictated by: Adarsh Tesfaye M.D. on 04/18/2017 at 22:24 Approved by: Adarsh Tesfaye M.D. on 04/18/2017 at 22:24 Interpretation / Wet Read by: Interpret - Radiologist Re-Eval/Medical Decision Med Decision/Clinical Course 32-year-old female with multiple previous visits related to chest pain presenting with recurrent chest pain. No objective findings of cardiac or pulmonary disease at present. Source of Hx: Old records Re-Evaluation/Progress : Time of Eval: 23:24 Patient Status: Condition improved Re-Evaluation/Progress Note: Pt rechecked, whose condition has improved. Still has some CP, got toradol and lorazepam. The plan for discharge pending further testing is discussed. The pt understands and agrees with the plan. All questions are addressed at this time. Counseled Regarding: Diagnosis, Lab results, Need for follow-up, When/why to return to ED Discharge & Departure Primary Impression: Non-cardiac chest pain Disposition: Home Discharge Condition All VS Reviewed: Yes Condition: Stable Additional Instructions: Emergency Department evaluation included an IV, examination, labs with repeat cardiac enzymes and ECG and review of past records. We gave lorazepam for anxiety, do not drive tonight. Continue previous home medications and follow- up with primary care soon. Return to emergency department if symptoms are increasing or if you have new symptoms of fevers or shortness of breath. Referrals: Lakshmi Layton (PCP) Sienna Wells MD Attestation Portions of this note were transcribed by Joe Byrne. I, Dr. Ayon personally performed the history, physical exam and medical decision-making; I reviewed and confirmed the accuracy of the information in the transcribed note. Signed by: Jarrett Muñiz, 04/18/2017 and 2329. copies to: Lakshmi Layton; Sienna Wells MD, Donald L MD Apr 18, 2017 21:58 JOE BYRNE Apr 18, 2017 22:25
[2017-04-18 22:20] LABS: BASOPHILS % (AUTO) 0.2 % (0-3); EOSINOPHILS % (AUTO) 1.3 % (0-5); MONOCYTES % (AUTO) 6.8 % (4-12); Mean Corpuscular Hemoglobin 28.4 pg (27.0-35.0); Mean Corpuscular Volume 84.9 fL (81-100); NEUTROPHILS % (AUTO) 64.5 % (40-74); Platelet Count 286 bil/L (150-400)
--- NOTE | 2017-04-18 22:27 | DRSVH ---
PROCEDURE: X-RAY CHEST ONE VIEW, PORTABLE ([id number]) INDICATIONS: chest pain TECHNIQUE: One view of the chest was acquired. COMPARISON: [facility], CR, XR CHEST 1VW (PORTABLE), 02/27/2017, 12:42. FINDINGS: Surgical changes and devices: shipping agent leads are seen over the chest. Lungs and pleura: No pleural effusions or pneumothorax. Lungs are clear. Mediastinum: Mediastinal contours appear normal. Heart size is normal. Bones and chest wall: No suspicious bony lesions. Overlying soft tissues appear unremarkable. IMPRESSION: No acute disease is seen in the portable upright chest. Dictated by: Adarsh Tesfaye M.D. on 04/18/2017 at 22:24 Approved by: Adarsh Tesfaye M.D. on 04/18/2017 at 22:24
[2017-04-18 22:41] LABS: TROPONIN T 0.01 ug/L (0.0-0.011)
[2017-04-18 22:52] LABS: Magnesium 1.9 mg/dL (1.6-2.6)
[2017-04-18 23:24] VITALS: BP 138/86; PULSE 76; RESP 16; O2SAT 98
[2017-04-19 01:17] VITALS: BP 144/77; PULSE 89; RESP 20; O2SAT 99
== END 2017-04-19 01:19 | disposition home or self-care (01) ==
LOC: SED 21:29
DX: R07.89 Other chest pain (principal); I50.9 Heart failure, unspecified; J45.909 Unspecified asthma, uncomplicated; I51.81 Takotsubo syndrome; F41.8 Other specified anxiety disorders; G43.909 Migraine, unspecified, not intractable, without status migrainosus; Z87.442 Personal history of urinary calculi; Z87.81 Personal history of (healed) traumatic fracture; Z79.82 Long term (current) use of aspirin; Z88.6 Allergy status to analgesic agent; Z88.8 Allergy status to other drugs, medicaments and biological substances; Z91.018 Allergy to other foods
CPT/HCPCS: 36415; 71010; 80053; 81002; 81025; 83735; 84484; 85025; 85378; 93005; 96374; 96375; 99285; J1885; J2060

== ENCOUNTER 2017-06-11 09:23 | Emergency (ER) | payer OTHER ==
[~2017-06-11] VITALS: Ht 162.6 cm; Wt 130.9 kg
[2017-06-11 09:27] VITALS: BP 145/84; PULSE 97; RESP 18; O2SAT 98
[2017-06-11] MEDS ORDERED: LidocaineVisc 2%:Antacid 1:1 10 mL Syringe PO ONE (09:50)
--- NOTE | 2017-06-11 10:10 | ED.REPORT ---
HPI-Chest Pain Under 40 Date of Service Jun 11, 2017 ED Provider: Darien Cai MD Patient is a 32 year old female with a history of stress induced cardiomyopathy with CHF and hypertension who presents to the ED complaining of chest pain onset 2200 last night. Associated symptoms include nausea, right arm pain and urinary urgency. She denies vomiting, shortness of breath, back pain or neck pain. Patient states that her pain hasn't been this bad for the past few weeks and reports that it feels different than her normal pain. The patient describes the pain as a burning and is located diffusely in her upper chest. She spoke with her stock transfer clerk, Dr. Wells who recommended she come to the ED. The patient has been experiencing intermittent chest pain since she went into anaphylactic shock in August of 2016. She had a normal stress echocardiogram in November of 2016 with a cardiology workup that was negative for NC and diagnosed with costochondritis. Nursing Notes Stated Complaint: CHEST PAIN Chief Complaint: Dysrhythmia/Cardiac Nursing Notes Reviewed: Yes Allergies: Coded Allergies: avocado (Verified Allergy, Unknown, 06/11/17) citalopram (Verified Allergy, Unknown, 06/11/17) hydroxyzine (Verified Allergy, Unknown, oversedation, 06/11/17) phenazopyridine (Verified Allergy, Unknown, 06/11/17) Uncoded Allergies: POLYMYXIN SULFATE (Allergy, Unknown, 09/28/15) Scheduled Acetic Acid/Hydrocortisone Otic Soln (Acetic Acid/Hydrocortisone Otic Soln) 10 Ml Drops 1 GTT BOTH_EARS BID Amitriptyline (Amitriptyline) 50 Mg Tab 50 MG PO HS Amitriptyline (Amitriptyline) 100 Mg Tablet 100 MG PO HS Aspirin Chew (Aspirin Chew) 81 Mg Chew 81 MG PO DAILY Beclomethasone Dipropionate (Qvar) 8.7 Gm Aer.w.adap 8.7 GM IH BID Metronidazole (Metronidazole Gel) 45 Gm Gel..gram. 1 APPLIC TOPICAL DAILY Scheduled PRN Albuterol HFA (Proair HFA) 8.5 Gm Hfa.aer.ad 2 PUFFS INHALATION Q4H PRN PRN For Shortness of Breath Budesonide/Formoterol 80-4.5 mcg Inh (Symbicort 80-4.5 mcg Inh) 120 Puff Inhaler 2 PUFFS PRN For Shortness of Breath Epinephrine (Epipen 2-Prem) 0.3 Mg/0.3 Ml Auto.injct 0.3 MG IJ ONCE PRN PRN For Anaphyllaxis Ibuprofen (Ibuprofen) 400 Mg Tablet 400 MG PO TIDWM PRN PRN For Pain Lorazepam (Ativan) 0.5 Mg Tablet 0.5 MG PO TID PRN PRN For Anxiety Miscellaneous Medications ([implanon]) 68 MG IMPLANT General Time Seen by MD: 09:35 Chief Complaint Chest pressure Hx Obtained From: Patient Arrived By: Walk-in Sudden in Onset?: Yes Onset Occurred: 9 - 12 hours ago Symptom Duration: Since onset Location: : Substernal Quality: Burning Radiation: : Arm right Severity: Current: Moderate Recent Healthcare: Recent doctor visit Similar Sx Previous: Yes Past Medical History Past Medical History Notes: PCP: Dr. Nicholas Corrections Nurse: Dr. 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 Female: Reports: Urinary urgency Physical Exam Initial Vital Signs Vital Signs (First) Date Time Temp Pulse Resp B/P Pulse Ox O2 Delivery O2 Flow Rate FiO2 06/11/17 09:27 36.3 97 18 145/84 98 Room Air Initial VS: Reviewed General/Constitutional: Awake, Alert Respiratory / Chest: Atraumatic, Breath sounds NL, Breath sounds = bilat, No respiratory distress reproducable mid sternal chest pain Cardiovascular: Heart rate NL, Regular rhythm Neck: Atraumatic, Supple Abdomen: Atraumatic, Soft mid epigastric tenderness Back: Atraumatic, Non-tender Lower Extremity / Pelvis / MS: Atraumatic, No edema Skin: Atraumatic, Color NL, No rash, Warm, Dry Neurologic: Oriented X3, Speech NL Head / Eyes: Atraumatic, Normocephalic, PERRL, EOMI Interpretation & Diagnostics Lab Results Interpretation Result Diagram: 06/11/17 1050 06/11/17 1050 Test 06/11/17 09:59 06/11/17 10:50 06/11/17 12:51 Hold Urine Received (Received) White Blood Count 8.2th/mm3 (3.8-10.1) Red Blood Count 4.85mil/mm3 (3.90-5.20) Hemoglobin 13.7g/dL (12.0-15.6) Hematocrit 41.4% (35.0-46.0) Mean Corpuscular Volume 85.4fL (81-100) Mean Corpuscular Hemoglobin 28.2pg (27.0-35.0) Mean Corpuscular Hemoglobin Concent 33.1% (32.0-37.0) Red Cell Distribution Width 13.1% (12.3-15.4) Platelet Count 282bil/L (150-400) Neutrophils (%) (Auto) 63.9% (40-74) Lymphocytes (%) (Auto) 26.9% (14-46) Monocytes (%) (Auto) 6.7% (4-12) Eosinophils (%) (Auto) 2.2% (0-5) Basophils (%) (Auto) 0.1% (0-3) D-Dimer < 0.50mg/L FEU (<0.50) Sodium Level 140mEq/L (134-144) Potassium Level 4.2mEq/L (3.5-5.2) Chloride Level 104mEq/L (97-108) Carbon Dioxide Level 22mmol/L (18-29) Blood Urea Nitrogen 10mg/dL (6-20) Creatinine 0.71mg/dL (0.57-1.00) Estimat Glomerular Filtration Rate 138mL/min (>59) Glucose Level 104mg/dL (60-99) Calcium Level 9.0mg/dL (8.5-10.1) Magnesium Level 2.0mg/dL (1.6-2.6) Total Bilirubin 0.3mg/dL (0.0-1.2) Aspartate Amino Transf (AST/SGOT) 21U/L (0-50) Alanine Aminotransferase (ALT/SGPT) 20U/L (0-32) Alkaline Phosphatase 96U/L (25-150) Total Protein 6.7g/dL (6.4-8.4) Albumin 3.6g/dL (3.4-5.0) Hold Philippe Top Tube Received (Received) Troponin T < 0.010ug/L (0.0-0.011) ECG Interpretation Time: 09:54 Normal ECG Interpretation: Normal rate (83), Normal sinus rhythm X-Ray Chest Interpretation Chest Xray Interpretation: IMPRESSION: No acute pulmonary process. Dictated by: Ayesha Sims M.D. on 06/11/2017 at 11:00 Approved by: Ayesha Sims M.D. on 06/11/2017 at 11:00 View: Portable, 1 view Interpretation / Wet Read by: Interpret - Radiologist Re-Eval/Medical Decision Med Decision/Clinical Course 32-year-old female with NSTEMI due to inadvertent epinephrine dose many months ago and resulted in cardiomyopathy and chronic chest pain presenting with her typical chronic chest pain. It is right-sided and reproducible. Her workup is negative here with negative troponins 2, normal chest x-ray, labs. Her pain was minimally improved. She also received a GI cocktail and narcotics. I discussed with her stock transfer clerk who gave her the option of admission versus going home. Patient preferred to go home. She will follow up with cardiology as an outpatient. I did increase her amitriptyline dose. Return precautions given. Re-Evaluation/Progress : Time of Eval: 14:10 Re-Evaluation/Progress Note: Discussed results and plan for discharge. Patient understands and agrees to plan. 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 Wells, stock transfer clerk, who recommends the patient have a repeat trop and if the patient wants to be admitted for a stress test she can but Dr. Wells is also comfortable discharging the patient and having her follow up outpatient. Counseled Regarding: Diagnosis, Lab results, Need for follow-up, When/why to return to ED Discharge & Departure Primary Impression: Chest pain Chest pain type: unspecified Qualified Code: R07.9 - Chest pain, unspecified Disposition: Home Discharge Condition All VS Reviewed: Yes Condition: Stable Additional Instructions: Your chest X-ray, EKG and labs were all normal and reassuring. Increase your Amitriptyline as discussed. Follow up with your primary care physician and stock transfer clerk this week. Return to the emergency department if you develop any new or concerning symptoms Referrals: Lakshmi Layton (PCP) Sienna Wells MD Attestation Portions of this note were transcribed by Ashley Stafford. I, Dr. Cai personally performed the history, physical exam and medical decision-making; I reviewed and confirmed the accuracy of the information in the transcribed note. Signed by: Jarrett Killian, 06/11/17. copies to: Lakshmi Layton; Sienna Wells MD, Ben M MD Jun 11, 2017 10:10 Payton Stafford Jun 11, 2017 10:17
[2017-06-11] MEDS ORDERED: LORazepam 0.5 mg Tablet PO ONE (10:55)
--- NOTE | 2017-06-11 11:02 | DRSVH ---
PROCEDURE: X-RAY CHEST ONE VIEW, PORTABLE ([id number]) INDICATIONS: chest pain TECHNIQUE: One view of the chest was acquired. COMPARISON: [facility], , XR CHEST 2VW, 05/02/2017, 17:22. FINDINGS: Surgical changes and devices: None. Lungs and pleura: No pleural effusions or pneumothorax. Lungs are clear. Mediastinum: Mediastinal contours appear normal. Heart size is normal. Bones and chest wall: No suspicious bony lesions. Overlying soft tissues appear unremarkable. IMPRESSION: No acute pulmonary process. Dictated by: Ayesha Sims M.D. on 06/11/2017 at 11:00 Approved by: Ayesha Sims M.D. on 06/11/2017 at 11:00
[2017-06-11 11:06] LABS: BASOPHILS % (AUTO) 0.1 % (0-3); EOSINOPHILS % (AUTO) 2.2 % (0-5); MONOCYTES % (AUTO) 6.7 % (4-12); Mean Corpuscular Hemoglobin 28.2 pg (27.0-35.0); Mean Corpuscular Volume 85.4 fL (81-100); NEUTROPHILS % (AUTO) 63.9 % (40-74); Platelet Count 282 bil/L (150-400)
[2017-06-11 11:27] LABS: TROPONIN T 0.01 ug/L (0.0-0.011)
[2017-06-11 11:29] VITALS: BP 117/62; PULSE 65; RESP 19; O2SAT 98
[2017-06-11 12:35] VITALS: BP 129/63; PULSE 73; RESP 19; O2SAT 100
[2017-06-11] MEDS ORDERED: AMIT100T2 PO (14:09)
[2017-06-11 15:00] VITALS: BP 104/51; PULSE 73; RESP 15; O2SAT 98
== END 2017-06-11 15:02 | disposition home or self-care (01) ==
LOC: SED 09:23
DX: R07.2 Precordial pain (principal); R11.0 Nausea; M79.601 Pain in right arm; I11.0 Hypertensive heart disease with heart failure; I50.9 Heart failure, unspecified; J45.909 Unspecified asthma, uncomplicated; G43.909 Migraine, unspecified, not intractable, without status migrainosus; F41.8 Other specified anxiety disorders; I42.9 Cardiomyopathy, unspecified; Z87.442 Personal history of urinary calculi; Z79.82 Long term (current) use of aspirin; Z88.6 Allergy status to analgesic agent; Z88.8 Allergy status to other drugs, medicaments and biological substances; Z91.018 Allergy to other foods
CPT/HCPCS: 36415; 71010; 80053; 81025; 83735; 84484; 85025; 85378; 93005; 96372; 99285; J1885; J2270